=== PATIENT | male | born 1945 | race Caucasian/White ===

== ENCOUNTER 2021-09-13 13:22 | Inpatient (IN) ==
--- NOTE | 2021-09-13 14:52 | Emergency Department Note ---
Extremity Problem HPI General Chief complaint: Extremity Problem,Nontraumatic Stated complaint: Diabetic foot wound Time Seen by Provider: 09/13/21 13:50 Source: patient Mode of arrival: wheelchair Limitations: no limitations History of Present Illness HPI Narrative: Narrative: 75 yo M w/ h/o DM2 p/w foot ulceration. He reports that he has fairly well controlled diabetes, but a few months ago stepped on a rock, resulting in a wound that then became infected. He was placed on two antibiotics for 3 weeks, and had resolution of the infection, but still had some residual ulceration. This was stable until a few days ago when he was working on his feet and then attended a standing auction, ultimately spending about 14 hours on his feet. Since then he has developed redness and some bloody drainage from the foot. He was seen by Dr Matteo perry/ wound care who referred him to the ED. Related Data Home Medications Medication Instructions Recorded Confirmed ascorbic acid (vitamin C) 500 mg 1,000 mg PO DAILY 01/02/16 09/13/21 tablet (Vitamin C) cinnamon bark 500 mg capsule 500 mg PO DAILY 01/02/16 09/13/21 cyanocobalamin (vitamin B-12) 500 500 mcg PO DAILY 01/02/16 09/13/21 mcg tablet insulin glargine 100 unit/mL (3 10 unit SUBCUT DAILY 09/13/21 09/13/21 mL) subcutaneous pen (Lantus Solostar U-100 Insulin) Allergies Allergy/AdvReac Type Severity Reaction Status Date / Time hydrocodone AdvReac Mild Dizziness Verified 09/14/21 06:11 oxycodone [From OxyContin] AdvReac Mild Other Verified 09/14/21 06:11 Review of Systems ROS ROS Narrative: Narrative: All systems ED: reviewed and negative except as stated. PFSH Narrative Patient History Narrative: Narrative: DM2 Medical/Surgical/Family History All Active Problems (Updated 09/13/21 @ 19:42 by Peter Nunez MD) Stage 1 acute kidney injury (Acute) Obesity (BMI 30-39.9) (Acute) Type 2 diabetes mellitus (Acute) Osteomyelitis of foot, right, acute (Acute) Cellulitis of right foot (Acute) Diabetic foot ulcer (Acute) Social History Smoking Status: Never smoker Exam Narrative Narrative: Narrative: General Limitations: no limitations General appearance: Present alert and in no apparent distress Head Head: Present atraumatic and normocephalic ENT ENT: Present normal oropharynx and mucous membranes moist Chest Chest: Present normal inspection and symmetric chest wall rise Respiratory Respiratory: Present normal lung sounds bilaterally; Absent respiratory distress, rales/crackles, wheezes or stridor Cardiovascular Cardiovascular: Present regular rate, normal rhythm, +S1, +S2 and other (2+ B/L radial pulses, 2sec CR over the R great toe); Absent systolic murmur or diastolic murmur Adbominal Abdominal: Present soft and normal bowel sounds; Absent distention or tenderness Extremities Extremities: Present other (2cm ulceration under MTP of R pinky toe, w/ surrounding erythema extending onto the superolateral aspect of the foot, about 10cm total diameter, minimal TTP, slightly warm to touch, blanching. 8x3cm area of blanching not warm not TTP erythema over R eduardo. No streaking. 1+ edema RLE.) Neurological Neurological: Present alert and oriented X3 Psychiatric Psychiatric: Present normal affect Skin Skin: Present warm (WNL) and dry Course Vital Signs Vital signs: Vital Signs Temperature 97.7 F 09/13/21 13:23 Pulse Rate 93 H 09/13/21 13:23 Respiratory Rate 18 09/13/21 13:23 Blood Pressure 147/84 09/13/21 13:23 Pulse Oximetry (%) 95 09/13/21 13:23 Temperature 97.3 F 09/14/21 07:08 Pulse Rate 70 09/14/21 07:08 Respiratory Rate 18 09/14/21 07:08 Blood Pressure 146/86 09/14/21 07:08 Pulse Oximetry (%) 93 09/14/21 07:08 MDM MDM Narrative Medical decision making narrative: Narrative: 75 yo M w/ h/o DM2 p/w foot ulceration and erythema DDx - sepsis, NSTI, cellulitis, osteomyelitis Pt presented clinically stable, in NAD. He was well appearing and did not meet SIRS criteria. NSTI was unlikely w/ no rapid progression (I was able to see a photo from yesterday and there is progression but minimal to moderate), no pain out of proportion to exam. Osteomyelitis was possible based on XR. ESR and CRP were also elevated. In response, I started IV abx while waiting to d/w podiatry. At time of shift change, podiatry call back was still pending and I signed pt out to Dr Mcclellan for final disposition. Lab Data Lab results reviewed: Yes I reviewed the patient's lab results. Result diagrams: 09/14/21 05:20 09/14/21 05:20 Labs: Lab Results 09/13/21 09/13/21 09/13/21 Range/Units 14:09 14:09 14:09 WBC 9.3 (4.5-11.0) K/mcL RBC 4.83 (4.63-6.08) M/mcL Hgb 14.6 (13.7-17.5) g/dL Hct 44.0 (40.1-51.0) % MCV 91.1 (80.0-100.0) fL MCH 30.2 (26.0-34.0) pg MCHC 33.2 (31.0-36.0) g/dL RDW 12.9 (11.5-14.5) % Plt Count 197 (140-440) K/mcL MPV 9.7 (7.4-10.4) fL Neut % (Auto) 89.6 H (38.0-78.0) % Lymph % (Auto) 4.1 L (15.5-49.0) % [place] % (Auto) 5.9 (1.0-12.0) % Eos % (Auto) 0.1 (0.0-7.0) % Baso % (Auto) 0.3 (0.0-2.0) % Lymph # (Auto) 0.38 L (1.50-4.80) K/mcL [place] # (Auto) 0.55 (0.10-0.90) K/mcL Eos # (Auto) 0.01 (0.00-0.70) K/mcL Baso # (Auto) 0.03 (0.00-0.30) K/mcL Absolute Neutrophils 8.33 H (1.80-8.00) K/mcL ESR 58 H (0-15) mm/hr VBG Lactic Acid 0.9 (0.5-2.0) mmol/L Sodium 135 (133-145) mmol/L Potassium 4.2 (3.3-5.1) mmol/L Chloride 96 (96-108) mmol/L Carbon Dioxide 23 (22-30) mmol/L Anion Gap 16.0 (8.0-16.0) BUN 20 (8-23) mg/dL Creatinine 1.3 H (0.7-1.2) mg/dL GFR Calculation 54 Glucose 183 H (70-105) mg/dL Hemoglobin A1c (4.0-6.0) % Hgb Estim Average Glucose mg/dL Calcium 8.9 (8.6-10.4) mg/dL Total Bilirubin 0.5 (0.1-1.0) mg/dL AST 21 (<40) U/L ALT 15 (<40) U/L Alkaline Phosphatase 72 (39-117) U/L C-Reactive Protein (0.03-0.80) mg/dL Total Protein 8.2 (5.9-8.4) gm/dL Albumin 3.9 (3.2-5.2) gm/dL Globulin 4.3 H (2.2-3.7) gm/dL Albumin/Globulin Ratio 0.9 L (1.0-2.3) Procalcitonin (<0.10) ng/mL 09/13/21 09/13/21 09/13/21 Range/Units 14:09 14:09 14:09 WBC (4.5-11.0) K/mcL RBC (4.63-6.08) M/mcL Hgb (13.7-17.5) g/dL Hct (40.1-51.0) % MCV (80.0-100.0) fL MCH (26.0-34.0) pg MCHC (31.0-36.0) g/dL RDW (11.5-14.5) % Plt Count (140-440) K/mcL MPV (7.4-10.4) fL Neut % (Auto) (38.0-78.0) % Lymph % (Auto) (15.5-49.0) % [place] % (Auto) (1.0-12.0) % Eos % (Auto) (0.0-7.0) % Baso % (Auto) (0.0-2.0) % Lymph # (Auto) (1.50-4.80) K/mcL [place] # (Auto) (0.10-0.90) K/mcL Eos # (Auto) (0.00-0.70) K/mcL Baso # (Auto) (0.00-0.30) K/mcL Absolute Neutrophils (1.80-8.00) K/mcL ESR (0-15) mm/hr VBG Lactic Acid (0.5-2.0) mmol/L Sodium (133-145) mmol/L Potassium (3.3-5.1) mmol/L Chloride (96-108) mmol/L Carbon Dioxide (22-30) mmol/L Anion Gap (8.0-16.0) BUN (8-23) mg/dL Creatinine (0.7-1.2) mg/dL GFR Calculation Glucose (70-105) mg/dL Hemoglobin A1c 10.4 H (4.0-6.0) % Hgb Estim Average Glucose 252 mg/dL Calcium (8.6-10.4) mg/dL Total Bilirubin (0.1-1.0) mg/dL AST (<40) U/L ALT (<40) U/L Alkaline Phosphatase (39-117) U/L C-Reactive Protein 28.00 H (0.03-0.80) mg/dL Total Protein (5.9-8.4) gm/dL Albumin (3.2-5.2) gm/dL Globulin (2.2-3.7) gm/dL Albumin/Globulin Ratio (1.0-2.3) Procalcitonin 1.12 H (<0.10) ng/mL Discharge Plan Patient/Caregiver Discharge Instructions Pt seen by COMPACTOR DRIVER/PA only: No Clinical Impression: Cellulitis of right foot, Diabetic foot ulcer Patient Disposition: Xfer As Inpt ([facility]) Discharge Date/Time: 09/13/21 20:28
--- NOTE | 2021-09-13 15:00 | XRay Report ---
INDICATION: foot pain, redness, drainage. Nonhealing ulcer TECHNIQUE: AP, oblique, lateral right foot COMPARISON: None. FINDINGS: There is soft tissue swelling and an apparent wound at the base of the right fifth digit. On lateral view there may be some bone loss of the distal right fifth metatarsal. There may be mild cortical destruction in the medial aspects of the right fifth metatarsal head demonstrated on AP view. Osteomyelitis is not excluded. Follow-up examination or MRI scan recommended. No other acute abnormalities. There is degenerative joint disease. No acute fracture. No other soft tissue abnormality. IMPRESSION: 1. Probable wound with associated soft tissue swelling at the base of the right fifth digit 2. Osteomyelitis of the fifth metatarsal head is possible although not definite Interpreted and Authenticated by: Yoni Herrera 09/13/21
[2021-09-13 15:01] LABS: Basophils # (Auto) 0.03 K/mcL (0.00-0.30); Basophils % (Auto) 0.3 % (0.0-2.0); Eosinophils # (Auto) 0.01 K/mcL (0.00-0.70); Eosinophils % (Auto) 0.1 % (0.0-7.0); Hemoglobin 14.6 g/dL (13.7-17.5); Lymphocytes # (Auto) 0.38 K/mcL (1.50-4.80); Lymphocytes % (Auto) 4.1 % (15.5-49.0); Mean Cell Volume 91.1 fL (80.0-100.0); Mean Corpuscular HGB Conc 33.2 g/dL (31.0-36.0); Mean Platelet Volume 9.7 fL (7.4-10.4); Monocytes # (Auto) 0.55 K/mcL (0.10-0.90); Monocytes % (Auto) 5.9 % (1.0-12.0); Neutrophils % (Auto) 89.6 % (38.0-78.0); Platelet Count 197 K/mcL (140-440); RBC 4.83 M/mcL (4.63-6.08); Red Cell Distribution Width 12.9 % (11.5-14.5); WBC 9.3 K/mcL (4.5-11.0)
[2021-09-13 15:41] LABS: ALT/SGPT 15 U/L (<40); AST/SGOT 21 U/L (<40); Albumin 3.9 gm/dL (3.2-5.2); Albumin/Globulin Ratio 0.9 (1.0-2.3); Alkaline Phosphatase 72 U/L (39-117); Bilirubin,Total 0.5 mg/dL (0.1-1.0); Blood Urea Nitrogen 20 mg/dL (8-23); Calcium 8.9 mg/dL (8.6-10.4); Carbon Dioxide 23 mmol/L (22-30); Chloride 96 mmol/L (96-108); Globulin 4.3 gm/dL (2.2-3.7); Glomerular Filtration Rate 54; Glucose 183 mg/dL (70-105)
[2021-09-13] MEDS ORDERED: PIPERACILLIN SODIUM/TAZOBACTAM 4.5 GM in DEXTROSE 5% IN WATER 50 ML IV ONE (16:22)
[2021-09-13] MEDS ORDERED: VANCOMYCIN 1,500 MG in 0.9 % SODIUM CHLORIDE 500 ML IV ONE (16:22)
--- NOTE | 2021-09-13 19:10 | Emergency Department Note ---
HPI General Chief complaint: Extremity Problem,Nontraumatic Stated complaint: Diabetic foot wound Time Seen by Provider: 09/13/21 13:50 Source: patient Mode of arrival: wheelchair Limitations: no limitations History of Present Illness HPI Narrative: Narrative: Related Data Home Medications Medication Instructions Recorded Confirmed ascorbic acid (vitamin C) [Vitamin 500 mg PO DAILY 01/02/16 01/05/16 C] cinnamon bark 500 mg PO DAILY 01/02/16 01/05/16 citalopram [Celexa] 10 mg PO DAILY 01/02/16 01/05/16 cyanocobalamin (vitamin B-12) 500 mcg PO DAILY 01/02/16 01/05/16 metformin 500 mg PO BIDCC 01/02/16 01/05/16 Previous Rx's Medication Instructions Recorded aspirin 325 mg PO DAILY #30 tab.ec 01/06/16 docusate sodium 100 mg PO BID #60 capsule 01/06/16 hydrocodone-acetaminophen 1 - 2 tab PO Q4HP PRN #90 tablet 01/06/16 Allergies Allergy/AdvReac Type Severity Reaction Status Date / Time oxycodone [From OxyContin] AdvReac Intermediate Other Verified 09/13/21 13:23 Review of Systems ROS ROS Narrative: Narrative: PFSH Narrative Patient History Narrative: Narrative: Medical/Surgical/Family History All Active Problems (Updated 09/13/21 @ 17:47 by Myron Salmeron MD) Cellulitis of right foot (Acute) Diabetic foot ulcer (Acute) Social History Smoking Status: Never smoker Exam Narrative Narrative: Narrative: General Limitations: no limitations Course Vital Signs Vital signs: Vital Signs Temperature 97.7 F 09/13/21 13:23 Pulse Rate 93 H 09/13/21 13:23 Respiratory Rate 18 09/13/21 13:23 Blood Pressure 147/84 09/13/21 13:23 Pulse Oximetry (%) 95 09/13/21 13:23 Temperature 97.7 F 09/13/21 13:23 Pulse Rate 82 09/13/21 19:02 Respiratory Rate 18 09/13/21 13:23 Blood Pressure 128/62 09/13/21 19:02 Pulse Oximetry (%) 96 09/13/21 19:02 [facility] MDM Narrative Medical decision making narrative: Narrative: Patient is a 75-year-old male who was signed out to me by Dr. Salmeron, and I agree with work-up and plan thus far. His medicine the patient had a diabetic foot ulcer over the past 5 weeks, but had a significant change in worsening over the last several days. He was seen at his wound clinic and I sent him here for evaluation and possible admission. He has been on multiple antibiotics over the past 3 weeks, and while initially it improved this is worse than it has been. He otherwise denies no significant symptoms. Vital signs stable, no elevated white blood count though he does have an elevated ESR and CRP. X-ray concerning for possible osteomyelitis. We tried to page podiatry at signout but not yet heard back. In total we have sent 3 calls to the dispatch manager with no return over the past hour and a half, and thus at this point I do feel the patient would best be treated with admission the hospital for IV antibiotics for his diabetic foot ulcer that is draining has the start of some cellulitic changes until he can be further evaluated by podiatry. Patient is agreeable to the plan at this time is no further concerns or questions. I did discuss case with the hospitalist, who agrees the plan of admission at this time. Lab Data Result diagrams: 09/13/21 14:09 09/13/21 14:09 Labs: Lab Results 09/13/21 09/13/21 09/13/21 Range/Units 14:09 14:09 14:09 WBC 9.3 (4.5-11.0) K/mcL RBC 4.83 (4.63-6.08) M/mcL Hgb 14.6 (13.7-17.5) g/dL Hct 44.0 (40.1-51.0) % MCV 91.1 (80.0-100.0) fL MCH 30.2 (26.0-34.0) pg MCHC 33.2 (31.0-36.0) g/dL RDW 12.9 (11.5-14.5) % Plt Count 197 (140-440) K/mcL MPV 9.7 (7.4-10.4) fL Neut % (Auto) 89.6 H (38.0-78.0) % Lymph % (Auto) 4.1 L (15.5-49.0) % [place] % (Auto) 5.9 (1.0-12.0) % Eos % (Auto) 0.1 (0.0-7.0) % Baso % (Auto) 0.3 (0.0-2.0) % Lymph # (Auto) 0.38 L (1.50-4.80) K/mcL [place] # (Auto) 0.55 (0.10-0.90) K/mcL Eos # (Auto) 0.01 (0.00-0.70) K/mcL Baso # (Auto) 0.03 (0.00-0.30) K/mcL Absolute Neutrophils 8.33 H (1.80-8.00) K/mcL ESR 58 H (0-15) mm/hr VBG Lactic Acid 0.9 (0.5-2.0) mmol/L Sodium 135 (133-145) mmol/L Potassium 4.2 (3.3-5.1) mmol/L Chloride 96 (96-108) mmol/L Carbon Dioxide 23 (22-30) mmol/L Anion Gap 16.0 (8.0-16.0) BUN 20 (8-23) mg/dL Creatinine 1.3 H (0.7-1.2) mg/dL GFR Calculation 54 Glucose 183 H (70-105) mg/dL Calcium 8.9 (8.6-10.4) mg/dL Total Bilirubin 0.5 (0.1-1.0) mg/dL AST 21 (<40) U/L ALT 15 (<40) U/L Alkaline Phosphatase 72 (39-117) U/L C-Reactive Protein (0.03-0.80) mg/dL Total Protein 8.2 (5.9-8.4) gm/dL Albumin 3.9 (3.2-5.2) gm/dL Globulin 4.3 H (2.2-3.7) gm/dL Albumin/Globulin Ratio 0.9 L (1.0-2.3) 09/13/21 Range/Units 14:09 WBC (4.5-11.0) K/mcL RBC (4.63-6.08) M/mcL Hgb (13.7-17.5) g/dL Hct (40.1-51.0) % MCV (80.0-100.0) fL MCH (26.0-34.0) pg MCHC (31.0-36.0) g/dL RDW (11.5-14.5) % Plt Count (140-440) K/mcL MPV (7.4-10.4) fL Neut % (Auto) (38.0-78.0) % Lymph % (Auto) (15.5-49.0) % [place] % (Auto) (1.0-12.0) % Eos % (Auto) (0.0-7.0) % Baso % (Auto) (0.0-2.0) % Lymph # (Auto) (1.50-4.80) K/mcL [place] # (Auto) (0.10-0.90) K/mcL Eos # (Auto) (0.00-0.70) K/mcL Baso # (Auto) (0.00-0.30) K/mcL Absolute Neutrophils (1.80-8.00) K/mcL ESR (0-15) mm/hr VBG Lactic Acid (0.5-2.0) mmol/L Sodium (133-145) mmol/L Potassium (3.3-5.1) mmol/L Chloride (96-108) mmol/L Carbon Dioxide (22-30) mmol/L Anion Gap (8.0-16.0) BUN (8-23) mg/dL Creatinine (0.7-1.2) mg/dL GFR Calculation Glucose (70-105) mg/dL Calcium (8.6-10.4) mg/dL Total Bilirubin (0.1-1.0) mg/dL AST (<40) U/L ALT (<40) U/L Alkaline Phosphatase (39-117) U/L C-Reactive Protein 28.00 H (0.03-0.80) mg/dL Total Protein (5.9-8.4) gm/dL Albumin (3.2-5.2) gm/dL Globulin (2.2-3.7) gm/dL Albumin/Globulin Ratio (1.0-2.3) Discharge Plan Patient/Caregiver Discharge Instructions Pt seen by PRACTICAL NURSE/PA only: No Clinical Impression: Cellulitis of right foot, Diabetic foot ulcer Patient Disposition: Xfer As Inpt ([facility]) Follow up with: Benny John MD [Primary Care Provider] - Prescriptions: No Action metformin 500 MG Tablet 500 mg PO BIDCC RF: 0 citalopram [Celexa] 10 MG Tablet 10 mg PO DAILY RF: 0 cyanocobalamin (vitamin B-12) 500 MCG Tablet 500 mcg PO DAILY RF: 0 ascorbic acid (vitamin C) [Vitamin C] 500 MG Tablet 500 mg PO DAILY RF: 0 cinnamon bark 500 MG Capsule 500 mg PO DAILY RF: 0 hydrocodone-acetaminophen 1 TAB Tablet 1 - 2 tab PO Q4HP PRN (Reason: Pain) Qty: 90 RF: 0 aspirin 325 MG Tab.Ec 325 mg PO DAILY Qty: 30 RF: 0 docusate sodium 100 MG Capsule 100 mg PO BID Qty: 60 RF: 0
--- NOTE | 2021-09-13 19:39 | Internal Med History&Physical ---
HPI History of Present Illness Patient information: Note initiated : 09/13/21 at 7:35 pm Service Date, if different from initiated Date: [] Patient: Jayjay Mcdonald a 75 y/o M admitted on for Diabetic Foot Wound. Chief Complaint: [] History of present illness: Mr. Mcdonald is a 75 year old M history of type 2 diabetes, presenting with 3-day history of right foot wound. Patient stepped on a stone 5 weeks ago with his right foot with a resultant foot ulcer. He was treated with 3 weeks course of oral antibiotics. At the end of the therapy, he said that his wound healed up. About 3 days ago, after standing for 14 hours, he noticed the base of his right fifth toe ulcerated again with pustular discharge. He is also experiencing 6 out of 10, aching, continuous pain at the center site. Alleviating factors involving elevating the right leg. Exacerbating factors including standing on the right foot. There is also associated erythematic rash on the right lateral foot as well as under right eduardo. Patient is also complaining of associated fever and chills. He denies any change in appetite or GI upset such as nausea or vomiting. He denies any general body weakness. He went to Dr. Davila office earlier today and was being sent to our ED for further evaluations. Vital signs at ED presentations were all within normal limits. Labs significant for lack of leukocytosis with WBC 9.3. Serum lactic acid 0.9. Serum creatinine level 1.3 with baseline 1.0. Serum glucose level 183. Right foot x-ray showing probable wound with associated soft tissue swelling at the base of the right fifth digit. Osteomyelitis of the fifth metatarsal head is possible although not definite. Constitutional Constitutional: Absent chills, excessive sweating, fatigue, fever(s) and weakness EENT Eyes: Absent blurry vision, change in vision, loss of vision and other visual disturbances Ears: Absent decreased hearing and tinnitus Nose, mouth and throat: Absent abnormal hearing, dry mouth, headache(s), nasal congestion and sore throat Cardiovascular Cardiovascular: Absent chest pain, chest pain at rest, edema, irregular heart rhythm and palpatations Respiratory Respiratory: Absent cough, dyspnea and wheezing Gastrointestinal Gastrointestinal: Absent abdominal pain, constipation, diarrhea, nausea and vomiting Musculoskeletal Musculoskeletal: Absent back pain, deformity, limited range of motion, muscle cramps, muscle weakness and numbness Integumentary Integumentary: Present erythema, lesions, rash, swelling and wounds Neurological Neurological: Absent focal weakness, headache(s) and numbness Psychiatric Psychiatric: Absent anxiety, depression and hallucinations PFSH PFSH All Active Problems (Updated 09/13/21 @ 19:42 by Peter Nunez MD) Stage 1 acute kidney injury (Acute) Obesity (BMI 30-39.9) (Acute) Type 2 diabetes mellitus (Acute) Osteomyelitis of foot, right, acute (Acute) Cellulitis of right foot (Acute) Diabetic foot ulcer (Acute) MEDS/ALLERGIES Home Medications and Allergies Home Medications Medication Instructions Recorded Confirmed Type ascorbic acid (vitamin C) [Vitamin 500 mg PO DAILY 01/02/16 01/05/16 History C] cinnamon bark 500 mg PO DAILY 01/02/16 01/05/16 History citalopram [Celexa] 10 mg PO DAILY 01/02/16 01/05/16 History cyanocobalamin (vitamin B-12) 500 mcg PO DAILY 01/02/16 01/05/16 History metformin 500 mg PO BIDCC 01/02/16 01/05/16 History aspirin 325 mg PO DAILY #30 tab.ec 01/06/16 Rx docusate sodium 100 mg PO BID #60 capsule 01/06/16 Rx hydrocodone-acetaminophen 1 - 2 tab PO Q4HP PRN #90 tablet 01/06/16 Rx Allergies Allergy/AdvReac Type Severity Reaction Status Date / Time oxycodone [From OxyContin] AdvReac Intermediate Other Verified 09/13/21 13:23 EXAM Constitutional Vitals: Temp Pulse Resp BP Pulse Ox 36.5 C 82 18 128/62 96 09/13/21 13:23 09/13/21 19:02 09/13/21 13:23 09/13/21 19:02 09/13/21 19:02 General appearance: cooperative and no acute distress Head Head exam: Present atraumatic and normocephalic Eye Eye exam: Present EOMI and PERRL ENT ENT exam: Present mucous membranes moist, normal exam and normal external ear exam Neck Neck exam: Present normal inspection; Absent lymphadenopathy, tenderness and thyromegaly Respiratory Respiratory exam: Absent accessory muscle use, respiratory distress and wheezes Cardiovascular Cardiovascular exam: Present normal rate and rhythm; Absent JVD GI/Abdominal GI/Abdominal exam: Present normal bowel sounds and soft; Absent organomegaly and tenderness Rectal Rectal exam: Present deferred Extremities Exam Extremities exam: Present full ROM, normal capillary refill and tenderness; Absent normal inspection Neurological Exam Neurological exam: Present alert, CN II-XII intact and oriented X3; Absent motor sensory deficit Psychiatric Psychiatric exam: Present normal affect and normal mood; Absent anxious and depressed Skin Skin exam: Present dry, erythema, rash and warm; Absent intact DATA Data Completed and Pending Labs: Labs from last 24 hours 09/13/21 09/13/21 09/13/21 14:09 14:09 14:09 WBC RBC Hgb Hct MCV MCH MCHC RDW Plt Count MPV Neut % (Auto) Lymph % (Auto) [place] % (Auto) Eos % (Auto) Baso % (Auto) Lymph # (Auto) [place] # (Auto) Eos # (Auto) Baso # (Auto) Absolute Neutrophils ESR 58 H VBG Lactic Acid 0.9 Sodium 135 Potassium 4.2 Chloride 96 Carbon Dioxide 23 Anion Gap 16.0 BUN 20 Creatinine 1.3 H GFR Calculation 54 Glucose 183 H Calcium 8.9 Total Bilirubin 0.5 AST 21 ALT 15 Alkaline Phosphatase 72 C-Reactive Protein 28.00 H Total Protein 8.2 Albumin 3.9 Globulin 4.3 H Albumin/Globulin Ratio 0.9 L 09/13/21 14:09 WBC 9.3 RBC 4.83 Hgb 14.6 Hct 44.0 MCV 91.1 MCH 30.2 MCHC 33.2 RDW 12.9 Plt Count 197 MPV 9.7 Neut % (Auto) 89.6 H Lymph % (Auto) 4.1 L [place] % (Auto) 5.9 Eos % (Auto) 0.1 Baso % (Auto) 0.3 Lymph # (Auto) 0.38 L [place] # (Auto) 0.55 Eos # (Auto) 0.01 Baso # (Auto) 0.03 Absolute Neutrophils 8.33 H ESR VBG Lactic Acid Sodium Potassium Chloride Carbon Dioxide Anion Gap BUN Creatinine GFR Calculation Glucose Calcium Total Bilirubin AST ALT Alkaline Phosphatase C-Reactive Protein Total Protein Albumin Globulin Albumin/Globulin Ratio A/P Assessment and plan (1) Diabetic foot ulcer: Status: Acute (2) Osteomyelitis of foot, right, acute: Status: Acute (3) Type 2 diabetes mellitus: Status: Acute (4) Obesity (BMI 30-39.9): Status: Acute (5) Stage 1 acute kidney injury: Status: Acute (6) Cellulitis of right foot: Status: Acute Narrative A/P Narrative: Assessment and Plans: 1. Right diabetic foot with associated right foot and right lower leg cellulitis, +/- osteomyelitis: Admit to inpatient med surg Consult Dr. Davila, recs. appreciated Consult Dr. Heard dam tender, recs. appreciated CT right foot w/ contrast to look for osteomyelitis Wound culture Blood culture Procalcitonin Serial lactic acid cbc w/ auto diff in the morning to trend WBC Vancomcyin Zosyn NS@100cc/hr Tylenol PRN fever/mild pain Balmorhea PRN moderate pain Morphine IV PRN severe pain Physical therapy Occupational therapy 2. Type 2 diabetes mellitus: HgA1c Hold metformin Low dose correctional scale insulin AC HS Accu Chek AC HS hypoglycemia protocol Diabetic diet 3. Stage 1 acute kidney injury: Avoid nephrotoxic agents NS@100cc/hr CMP in the morning to trend kidney functions 4. 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
[2021-09-13] MEDS ORDERED: DEXTROSE 50% 50 ML VIAL IV PRN (20:56)
[2021-09-13] MEDS ORDERED: ONDANSETRON 4 MG/2 ML VIAL IV PRN (20:56)
[2021-09-13] MEDS ORDERED: VANCOMYCIN PER PHARMACY IV ONE (20:56)
[2021-09-13] MEDS ORDERED: DEXTROSE 31 GM ORAL.SUSP PO PRN (20:56)
[2021-09-13] MEDS ORDERED: IPRATROPIUM/ALBUTEROL 3 ML AMPUL.NEB NEB PRN (20:56)
[2021-09-13] MEDS ORDERED: HYDROcodone/APAP 10/325MG TABLET PO PRN (20:56)
[2021-09-13] MEDS ORDERED: morphine 4 MG/ML VIAL IV PRN (20:56)
[2021-09-13] MEDS ORDERED: DOCUSATE SODIUM 100 MG CAPSULE PO SCH (21:00)
[2021-09-13] MEDS: 0.9 % SODIUM CHLORIDE 1,000 ML IV SCH (21:27)
[2021-09-13] MEDS ORDERED: IOPAMIDOL 100 ML BOTTLE IV ONE (21:31)
[2021-09-13] MEDS: 0.9 % SODIUM CHLORIDE 10 ML SYRINGE IV SCH (21:33)
[2021-09-13] MEDS: HEPARIN 5,000 UNIT/ML VIAL SQ SCH (22:19)
[2021-09-13] MEDS: ZOLPIDEM 5 MG TABLET PO PRN (22:20)
[2021-09-13] MEDS ORDERED: HEPARIN 5,000 UNIT/ML VIAL ONE (22:21)
[2021-09-13] MEDS ORDERED: ZOLPIDEM 5 MG TABLET ONE (22:21)
[2021-09-13 22:25] LABS: Estimated Average Glucose(eAG) 252 mg/dL; Hemoglobin A1C 10.4 % Hgb (4.0-6.0)
[2021-09-13] MEDS: DOCUSATE SODIUM 100 MG CAPSULE PO SCH (22:48)
[2021-09-13] MEDS: SENNOSIDES 1 TABLET PO SCH (22:48)
[2021-09-13] MEDS: PIPERACILLIN SODIUM/TAZOBACTAM 3.375 GM in DEXTROSE 5% IN WATER 50 ML IV SCH (23:37)
[2021-09-13] MEDS: INSULIN LISPRO 1 UNIT/0.01 ML UNIT SQ SCH (23:45)
[2021-09-14] MEDS: PIPERACILLIN SODIUM/TAZOBACTAM 3.375 GM in DEXTROSE 5% IN WATER 50 ML IV SCH ×4 (05:00→23:50)
--- NOTE | 2021-09-14 05:46 | Cat Scan Report ---
INDICATION: look for foot osteomyelitis TECHNIQUE: Thin section axial images through the right foot. Sagittal and coronal reformatted images COMPARISON: Plain film examination dated 09/13/2021 FINDINGS: There is soft tissue edema surrounding the left fifth metatarsal phalangeal joint. This extends the subcutaneous soft tissues. There is a wound involving the plantar surface of the left forefoot at the level of the fifth metatarsal phalangeal joint. Appearance is consistent with soft tissue infection and probable septic joint. No soft tissue gas bubbles to indicate gas gangrene there is bone destruction involving the left fifth metatarsal head. Appearance is consistent with septic arthritis and osteomyelitis. Other metatarsals and phalanges are negative without cortical destruction or evidence for osteomyelitis. There is no acute fracture. There is no radiopaque foreign body. There is degenerative joint disease in the midfoot and hindfoot. There is degenerative change subtalar joints with sclerosis and subchondral cystic change. No evidence for infection. IMPRESSION: 1. Soft tissue swelling consistent with cellulitis at the level of the left fifth metatarsal phalangeal joint extending to the plantar surface. No soft tissue gas bubbles 2. Findings consistent with septic arthritis and osteomyelitis involving the left fifth metatarsal head Interpreted and Authenticated by: Yoni Herrera 09/14/21
[2021-09-14] MEDS: 0.9 % SODIUM CHLORIDE 10 ML SYRINGE IV SCH ×6 (05:55→23:56)
[2021-09-14] MEDS ORDERED: VANCOMYCIN PER PHARMACY IV SCH (06:30)
[2021-09-14 07:11] LABS: Basophils # (Auto) 0.04 K/mcL (0.00-0.30); Basophils % (Auto) 0.5 % (0.0-2.0); Eosinophils % (Auto) 1.3 % (0.0-7.0); Hematocrit 38.4 % (40.1-51.0); Hemoglobin 12.6 g/dL (13.7-17.5); Lymphocytes # (Auto) 1.12 K/mcL (1.50-4.80); Lymphocytes % (Auto) 15.1 % (15.5-49.0); Mean Cell Volume 91.9 fL (80.0-100.0); Mean Corpuscular HGB Conc 32.8 g/dL (31.0-36.0); Mean Platelet Volume 9.9 fL (7.4-10.4); Monocytes # (Auto) 1.06 K/mcL (0.10-0.90); Monocytes % (Auto) 14.3 % (1.0-12.0); Neutrophils % (Auto) 68.8 % (38.0-78.0); Platelet Count 166 K/mcL (140-440); RBC 4.18 M/mcL (4.63-6.08); Red Cell Distribution Width 12.9 % (11.5-14.5); WBC 7.4 K/mcL (4.5-11.0)
[2021-09-14 07:12] LABS: ALT/SGPT 11 U/L (<40); AST/SGOT 16 U/L (<40); Albumin/Globulin Ratio 0.9 (1.0-2.3); Alkaline Phosphatase 58 U/L (39-117); Bilirubin,Total 0.3 mg/dL (0.1-1.0); Blood Urea Nitrogen 14 mg/dL (8-23); Calcium 8.4 mg/dL (8.6-10.4); Carbon Dioxide 22 mmol/L (22-30); Chloride 101 mmol/L (96-108); Globulin 3.5 gm/dL (2.2-3.7); Glomerular Filtration Rate 74; Glucose 166 mg/dL (70-105)
[2021-09-14] MEDS: INSULIN LISPRO 1 UNIT/0.01 ML UNIT SQ SCH ×4 (07:37→21:12)
[2021-09-14] MEDS: 0.9 % SODIUM CHLORIDE 1,000 ML IV SCH (07:50)
[2021-09-14] MEDS: ASPIRIN 325 MG ENTERIC COATED TABLET PO SCH (07:51)
[2021-09-14] MEDS: VANCOMYCIN 1,500 MG in 0.9 % SODIUM CHLORIDE 500 ML IV SCH ×2 (07:51→20:50)
[2021-09-14] MEDS: DOCUSATE SODIUM 100 MG CAPSULE PO SCH ×2 (07:51→21:03)
[2021-09-14] MEDS: CYANOCOBALAMIN (VITAMIN B-12) 500 MCG TABLET PO SCH (07:51)
[2021-09-14] MEDS: ASCORBIC ACID 500 MG TABLET PO SCH (07:51)
[2021-09-14] MEDS: HEPARIN 5,000 UNIT/ML VIAL SQ SCH ×3 (07:52→21:12)
[2021-09-14] MEDS ORDERED: CITALOPRAM 10 MG TABLET PO SCH (09:00)
[2021-09-14] MEDS: Cinnamon Bark 500 MG Capsule PO SCH (09:31)
--- NOTE | 2021-09-14 09:51 | Orthopedic Consult Note ---
HPI Data of Consult Consult date: 09/14/21 Primary Care Provider: Benny John Consult Narrative Patient Information: Note initiated : 09/14/21 at 9:48 am Service Date, if different from initiated Date: [] Patient: Jayjay Mcdonald 75 y/o M admitted on 09/13/21 for Diabetic Foot Wound. Chief Complaint: [diabetic foot wound, right] Right recurring diabetic foot wound. The bone shows destruction on the CT scan. He wants the most definitive solution as he is tired of dealing with this issue. cc:: CC: Peter Nunez MD [facility] All Active Problems (Updated 09/13/21 @ 19:42 by Peter Nunez MD) Stage 1 acute kidney injury (Acute) Obesity (BMI 30-39.9) (Acute) Type 2 diabetes mellitus (Acute) Osteomyelitis of foot, right, acute (Acute) Cellulitis of right foot (Acute) Diabetic foot ulcer (Acute) MEDS/ALLERGIES Home Medications and Allergies Home Medications Medication Instructions Recorded Confirmed Type ascorbic acid (vitamin C) 500 mg 1,000 mg PO DAILY 01/02/16 09/13/21 History tablet (Vitamin C) cinnamon bark 500 mg capsule 500 mg PO DAILY 01/02/16 09/13/21 History cyanocobalamin (vitamin B-12) 500 500 mcg PO DAILY 01/02/16 09/13/21 History mcg tablet insulin glargine 100 unit/mL (3 10 unit SUBCUT DAILY 09/13/21 09/13/21 History mL) subcutaneous pen (Lantus Solostar U-100 Insulin) Allergies Allergy/AdvReac Type Severity Reaction Status Date / Time hydrocodone AdvReac Mild Dizziness Verified 09/14/21 06:11 oxycodone [From OxyContin] AdvReac Mild Other Verified 09/14/21 06:11 Physical Examination Narrative Narrative: Narrative: Ankle & Foot right: Foot appearance: swelling, erythema and contusion A/P Narrative A/P Narrative: Heart: s1, s2, no murmur Lungs: clear to auscultation, bilateral Time Spent With Patient Time: Total time spent is greater than 50% in coordination of care (as documented) at patient's floor/unit and/or counseling patient: Parital Removal of right fifth metatarsal
[2021-09-14] MEDS ORDERED: SCOPOLAMINE 1 PATCH PATCH TOPICAL PRN (10:04)
--- NOTE | 2021-09-14 10:25 | General Surgery Consult Note ---
[facility] Data of Consult Consult date: 09/14/21 Requesting physician: Peter Nunez Primary Care Provider: Benny John Consult Narrative Patient Information: Note initiated : 09/14/21 at 10:11 am Service Date, if different from initiated Date: [] Patient: Jayjay Mcdonald 75 y/o M admitted on 09/13/21 for Right Partial Fifth Metatarsal Amputaion. Chief Complaint: [] Chief complaint: OPEN infected wound RIGHT plantar DFU with cellulitis. Reason for consult: Wound management and continuity of care. cc:: CC: Peter Nunez MD Constitutional Constitutional: Present as per HPI Additional comments: H/O DFU under RIGHT 5th toe 5 weeks ago, Healed wound after conservative slava gement. This opened again over 3 days ago with drainage, rash along the RIGHT lateral foot, extending proximally up to ankle and lower leg. NO other acute systemic or constitutional symptoms. Integumentary Integumentary: Present as per HPI Additional comments: Open wound under RIGHT 5th toe MPJ with edema, rash and cellulitis. Neurological Additional comments: DM with peripheral neuropathy PFSH PFSH All Active Problems (Updated 09/14/21 @ 10:23 by Krystian Davila MD) Stage 1 acute kidney injury (Acute) Obesity (BMI 30-39.9) (Acute) Type 2 diabetes mellitus (Acute) Osteomyelitis of foot, right, acute (Acute) Cellulitis of right foot (Acute) Diabetic foot ulcer (Acute) MEDS/ALLERGIES Home Medications and Allergies Home Medications Medication Instructions Recorded Confirmed Type ascorbic acid (vitamin C) 500 mg 1,000 mg PO DAILY 01/02/16 09/13/21 History tablet (Vitamin C) cinnamon bark 500 mg capsule 500 mg PO DAILY 01/02/16 09/13/21 History cyanocobalamin (vitamin B-12) 500 500 mcg PO DAILY 01/02/16 09/13/21 History mcg tablet insulin glargine 100 unit/mL (3 10 unit SUBCUT DAILY 09/13/21 09/13/21 History mL) subcutaneous pen (Lantus Solostar U-100 Insulin) Allergies Allergy/AdvReac Type Severity Reaction Status Date / Time hydrocodone AdvReac Mild Dizziness Verified 09/14/21 06:11 oxycodone [From OxyContin] AdvReac Mild Other Verified 09/14/21 06:11 Physical Examination Vital Signs Vital signs: Temp Pulse Resp BP Pulse Ox 97.3 F 70 18 146/86 93 09/14/21 07:08 09/14/21 07:08 09/14/21 07:08 09/14/21 07:08 09/14/21 07:08 Eyes Eye exam: PERRL and normal ocular movement ENT ENT exam: normal pinna, normal mucosa and no congestion Head Head exam IM: Present atraumatic and normocephalic Neck Neck exam: no masses, trachea midline and no venous distension Cardiovascular Cardiovascular exam IM: Present normal rate and rhythm Respiratory Respiratory exam: normal respiratory effort and clear to auscultation Abdomen Abdomen: Present soft, non tender and bowel sounds Integumentary Integumentary: Present other (DFU Stage 4 under RIGHT 5th toe MPJ. Probes to bone. Proximal edema, warmth, odor and draiange with rash / cellulitis extenidng to ankle and lower leg. ) Neurologic Neurologic: Present other (Diabetes with peripheral neuropathy.) Musculoskeletal Musculoskeletal: Present normal posture Psychiatric Psychiatric: Present oriented to time, oriented to person, oriented to place, speech is normal and memory intact Additional Findings Additional exam: Lags and Imaging studies reviewed. X Ray and CT: Destruction of MPJ 5th toe under open wound site. Uncontrolled DM A1C is over 9, Elevated CRP, ESR and Calcitonin. Results Labs Result diagrams: 09/14/21 05:20 09/14/21 05:20 Labs: Abnormal lab results 09/13/21 09/13/21 09/13/21 Range/Units 14:09 14:09 14:09 RBC (4.63-6.08) M/mcL Hgb (13.7-17.5) g/dL Hct (40.1-51.0) % Neut % (Auto) 89.6 H (38.0-78.0) % Lymph % (Auto) 4.1 L (15.5-49.0) % Dare % (Auto) (1.0-12.0) % Lymph # (Auto) 0.38 L (1.50-4.80) K/mcL [place] # (Auto) (0.10-0.90) K/mcL Absolute Neutrophils 8.33 H (1.80-8.00) K/mcL ESR 58 H (0-15) mm/hr Creatinine 1.3 H (0.7-1.2) mg/dL Glucose 183 H (70-105) mg/dL Hemoglobin A1c (4.0-6.0) % Hgb Calcium (8.6-10.4) mg/dL C-Reactive Protein (0.03-0.80) mg/dL Albumin (3.2-5.2) gm/dL Globulin 4.3 H (2.2-3.7) gm/dL Albumin/Globulin Ratio 0.9 L (1.0-2.3) Procalcitonin (<0.10) ng/mL 09/13/21 09/13/21 09/13/21 Range/Units 14:09 14:09 14:09 RBC (4.63-6.08) M/mcL Hgb (13.7-17.5) g/dL Hct (40.1-51.0) % Neut % (Auto) (38.0-78.0) % Lymph % (Auto) (15.5-49.0) % [place]are % (Auto) (1.0-12.0) % Lymph # (Auto) (1.50-4.80) K/mcL [place] # (Auto) (0.10-0.90) K/mcL Absolute Neutrophils (1.80-8.00) K/mcL ESR (0-15) mm/hr Creatinine (0.7-1.2) mg/dL Glucose (70-105) mg/dL Hemoglobin A1c 10.4 H (4.0-6.0) % Hgb Calcium (8.6-10.4) mg/dL C-Reactive Protein 28.00 H (0.03-0.80) mg/dL Albumin (3.2-5.2) gm/dL Globulin (2.2-3.7) gm/dL Albumin/Globulin Ratio (1.0-2.3) Procalcitonin 1.12 H (<0.10) ng/mL 09/14/21 09/14/21 Range/Units 05:20 05:20 RBC 4.18 L (4.63-6.08) M/mcL Hgb 12.6 L (13.7-17.5) g/dL Hct 38.4 L (40.1-51.0) % Neut % (Auto) (38.0-78.0) % Lymph % (Auto) 15.1 L (15.5-49.0) % Dare % (Auto) 14.3 H (1.0-12.0) % Lymph # (Auto) 1.12 L (1.50-4.80) K/mcL [place]are # (Auto) 1.06 H (0.10-0.90) K/mcL Absolute Neutrophils (1.80-8.00) K/mcL ESR (0-15) mm/hr Creatinine (0.7-1.2) mg/dL Glucose 166 H (70-105) mg/dL Hemoglobin A1c (4.0-6.0) % Hgb Calcium 8.4 L (8.6-10.4) mg/dL C-Reactive Protein (0.03-0.80) mg/dL Albumin 3.0 L (3.2-5.2) gm/dL Globulin (2.2-3.7) gm/dL Albumin/Globulin Ratio 0.9 L (1.0-2.3) Procalcitonin (<0.10) ng/mL Diabetes panel 09/13/21 09/13/21 09/14/21 Range/Units 14:09 14:09 05:20 Sodium 135 133 (133-145) mmol/L Potassium 4.2 3.9 (3.3-5.1) mmol/L Chloride 96 101 (96-108) mmol/L Carbon Dioxide 23 22 (22-30) mmol/L BUN 20 14 (8-23) mg/dL Creatinine 1.3 H 1.0 (0.7-1.2) mg/dL Glucose 183 H 166 H (70-105) mg/dL Hemoglobin A1c 10.4 H (4.0-6.0) % Hgb Calcium 8.9 8.4 L (8.6-10.4) mg/dL AST 21 16 (<40) U/L ALT 15 11 (<40) U/L Alkaline Phosphatase 72 58 (39-117) U/L Total Protein 8.2 6.5 (5.9-8.4) gm/dL Albumin 3.9 3.0 L (3.2-5.2) gm/dL Calcium panel 09/13/21 09/14/21 Range/Units 14:09 05:20 Calcium 8.9 8.4 L (8.6-10.4) mg/dL Albumin 3.9 3.0 L (3.2-5.2) gm/dL Pituitary panel 09/13/21 09/14/21 Range/Units 14:09 05:20 Sodium 135 133 (133-145) mmol/L Potassium 4.2 3.9 (3.3-5.1) mmol/L Chloride 96 101 (96-108) mmol/L Carbon Dioxide 23 22 (22-30) mmol/L BUN 20 14 (8-23) mg/dL Creatinine 1.3 H 1.0 (0.7-1.2) mg/dL Glucose 183 H 166 H (70-105) mg/dL Calcium 8.9 8.4 L (8.6-10.4) mg/dL Adrenal panel 09/13/21 09/14/21 Range/Units 14:09 05:20 Sodium 135 133 (133-145) mmol/L Potassium 4.2 3.9 (3.3-5.1) mmol/L Chloride 96 101 (96-108) mmol/L Carbon Dioxide 23 22 (22-30) mmol/L BUN 20 14 (8-23) mg/dL Creatinine 1.3 H 1.0 (0.7-1.2) mg/dL Glucose 183 H 166 H (70-105) mg/dL Calcium 8.9 8.4 L (8.6-10.4) mg/dL Total Bilirubin 0.5 0.3 (0.1-1.0) mg/dL AST 21 16 (<40) U/L ALT 15 11 (<40) U/L Alkaline Phosphatase 72 58 (39-117) U/L Total Protein 8.2 6.5 (5.9-8.4) gm/dL Albumin 3.9 3.0 L (3.2-5.2) gm/dL All other labs normal. Imaging Chest x-ray: report reviewed Additional studies: CT and X Ray RIGHT foot reviewed A/P Assessment and plan (1) Obesity (BMI 30-39.9): Status: Acute (2) Osteomyelitis of foot, right, acute: Status: Acute (3) Cellulitis of right foot: Status: Acute (4) Diabetic foot ulcer: Status: Acute Comment: Uncontrolled DM with CSSSI Right foot. Stage 4 ulcer, Needs surgical debridement and tissue c/s for futher treatment. Narrative A/P Narrative: Assessment: Uncontrolled diabetes Sepsis CSSSI Acute osteomyelitis RIGHT 5th toe. Plan: IV antibiotics. Podiatry and foot surgery consult Dr Live Heard for OR today. I will continue to follow patient from wound care point of view. Time Spent With Patient Time: Total time spent is greater than 50% in coordination of care (as documented) at patient's floor/unit and/or counseling patient: Total time spent with greater than 50% in coordination of care (as documented) at patient's floor/unit and/or counseling patient:: Greater than 35 minutes
[2021-09-14] MEDS: CITALOPRAM 20 MG TABLET PO SCH (10:43)
--- NOTE | 2021-09-14 11:00 | Internal Med Progress Note ---
SUBJECTIVE Subjective Patient information: Note initiated : 09/14/21 at 10:54 am Service Date, if different from initiated Date: [] Patient: Jayjay Mcdonald 75 y/o M admitted on 09/13/21 for Right Partial Fifth Metatarsal Amputaion. Chief Complaint: [] Interval history: History of present illness: Mr. Mcdonald is a 75 year old M history of type 2 diabetes, presenting with 3-day history of right foot wound. Patient stepped on a stone 5 weeks ago with his right foot with a resultant foot ulcer. He was treated with 3 weeks course of oral antibiotics. At the end of the therapy, he said that his wound healed up. About 3 days ago, after standing for 14 hours, he noticed the base of his right fifth toe ulcerated again with pustular discharge. He is also experiencing 6 out of 10, aching, continuous pain at the center site. Alleviating factors involving elevating the right leg. Exacerbating factors including standing on the right foot. There is also associated erythematic rash on the right lateral foot as well as under right eduardo. Patient is also complaining of associated fever and chills. He denies any change in appetite or GI upset such as nausea or vomiting. He denies any general body weakness. He went to Dr. Davila office earlier today and was being sent to our ED for further evaluations. Vital signs at ED presentations were all within normal limits. Labs significant for lack of leukocytosis with WBC 9.3. Serum lactic acid 0.9. Serum creatinine level 1.3 with baseline 1.0. Serum glucose level 183. Right foot x-ray showing probable wound with associated soft tissue swelling at the base of the right fifth digit. Osteomyelitis of the fifth metatarsal head is possible although not definite. 09/14: Afebrile overnight. Blood and wound cultures no growth to date. CT right foot signs of osteomyelitis. Dr. Heard to be performing surgery this morning. Constitutional Vitals: Vital Signs Temp Pulse Resp BP Pulse Ox 36.3 C 70 18 146/86 93 09/14/21 07:08 09/14/21 07:08 09/14/21 07:08 09/14/21 07:08 09/14/21 07:08 Period Temp Pulse Resp BP Sys/Elizondo Pulse Ox Last 24 Hr 36.3 C-37.2 C 70-93 18-20 120-157/62-110 93-98 Intake and Output 09/13/21 09/14/21 09/14/21 21:59 05:59 13:59 Intake Total 205 202 7115 Output Total 600 Balance 550 -100 1000 Weight 128.367 kg Intake & Output: Intake & Output 09/13/21 09/14/21 09/14/21 21:59 05:59 13:59 Intake Total 474 886 0030 Output Total 600 Balance 550 -100 1000 Weight 128.367 kg Intake: IV 028 236 0562 Sodium Chloride 0.9% 1,000 ml @ 1000 100 mls/hr IV .Q10H [facility] Rx#: [id number] Zosyn 3.375 gm In Dextrose 5% 100 in Water 50 ml @ 100 mls/hr IV Q6H [facility] Rx#:[id number] Zosyn 4.5 gm In Dextrose 5% in 50 Water 50 ml @ 100 mls/hr IV ONCE ONE Rx#:[id number] Vancomycin 1,500 mg In Sodium 500 Chloride 0.9% 500 ml @ 333.3 mls/hr IV ONCE ONE Rx#: [id number] Oral 400 Output: Void Amount 600 Other: Meal Breakfast Percent of Meal Consumed 25% Feeding Ability Independent Urine Appearance Clear Urine Color Pale # Bowel Movements 0 Head Head exam: Present atraumatic and normal inspection Eye Eye exam: Present normal appearance ENT ENT exam: Present mucous membranes moist, normal exam and normal external ear exam Neck Neck exam: Present normal inspection Respiratory Respiratory exam: Present normal respiratory exam Cardiovascular Cardiovascular exam: Present normal rate and rhythm GI/Abdominal GI/Abdominal exam: Present normal bowel sounds Extremities Exam Extremities exam: Present full ROM and tenderness; Absent normal inspection Additional comments: Right 5th metatarsal toe base ulcer measuring 1cm across with pustular discharge and surround erythema, warmth, tenderness to palpation Back Exam Back exam: Present normal inspection Neurological Exam Neurological exam: Present alert and oriented X3 Skin Skin exam: Present erythema and warm; Absent intact Additional comments: Right 5th metatarsal toe base ulcer measuring 1cm across with pustular discharge and surround erythema, warmth, tenderness to palpation OBJ DATA Labs CBC & Chem 7: 09/14/21 05:20 09/14/21 05:20 Labs: Abnormal Lab Results 09/14/21 09/14/21 09/13/21 05:20 05:20 14:09 RBC 4.18 L Hgb 12.6 L Hct 38.4 L Neut % (Auto) Lymph % (Auto) 15.1 L [place] % (Auto) 14.3 H Lymph # (Auto) 1.12 L [place] # (Auto) 1.06 H Absolute Neutrophils ESR Creatinine Glucose 166 H Hemoglobin A1c Calcium 8.4 L C-Reactive Protein Albumin 3.0 L Globulin Albumin/Globulin Ratio 0.9 L Procalcitonin 1.12 H 09/13/21 09/13/21 09/13/21 14:09 14:09 14:09 RBC Hgb Hct Neut % (Auto) Lymph % (Auto) [place] % (Auto) Lymph # (Auto) [place] # (Auto) Absolute Neutrophils ESR 58 H Creatinine Glucose Hemoglobin A1c 10.4 H Calcium C-Reactive Protein 28.00 H Albumin Globulin Albumin/Globulin Ratio Procalcitonin 09/13/21 09/13/21 14:09 14:09 RBC Hgb Hct Neut % (Auto) 89.6 H Lymph % (Auto) 4.1 L [place] % (Auto) Lymph # (Auto) 0.38 L [place] # (Auto) Absolute Neutrophils 8.33 H ESR Creatinine 1.3 H Glucose 183 H Hemoglobin A1c Calcium C-Reactive Protein Albumin Globulin 4.3 H Albumin/Globulin Ratio 0.9 L Procalcitonin Meds: Medications Acetaminophen (Acetaminophen 325 Mg Tablet) 650 mg PO Q6HP PRN; Protocol PRN Reason: Per Pain Protocol/Fever > 101 Hydrocodone Bitart/Acetaminophen (Hydrocodone/Apap 10/325mg Tablet) 1 - 2 tab PO Q4HP PRN; Protocol PRN Reason: Pain Albuterol/Ipratropium (Ipratropium/Albuterol 3 Ml Ampul.Neb) 3 ml NEB Q4HRT PRN PRN Reason: Wheezing Ascorbic Acid (Ascorbic Acid 500 Mg Tablet) 500 mg PO DAILY [facility] Last Admin: 09/14/21 07:51 Dose: 500 mg Documented by: Aspirin (Aspirin 325 Mg Enteric Coated Tablet) 325 mg PO DAILY [facility] Last Admin: 09/14/21 07:51 Dose: 325 mg Documented by: Citalopram Hydrobromide (Citalopram 20 Mg Tablet) 10 mg PO DAILY [facility] Last Admin: 09/14/21 10:43 Dose: 10 mg Documented by: Cyanocobalamin (Cyanocobalamin (Vitamin B-12) 500 Mcg Tablet) 500 mcg PO DAILY [facility] Last Admin: 09/14/21 07:51 Dose: 500 mcg Documented by: Dextrose (Dextrose 50% 50 Ml Vial) 0 ml IV UD PRN PRN Reason: Hypoglycemia Diagnostic Test (Pha) (Accu-Chek 1 Each Strip) 1 each FS [facility] Last Admin: 09/14/21 07:37 Dose: 1 each Documented by: Docusate Sodium (Docusate Sodium 100 Mg Capsule) 100 mg PO BID [facility] Last Admin: 09/14/21 07:51 Dose: 100 mg Documented by: Glucose (Dextrose 31 Gm Oral.Susp) 15 gm PO PRN PRN PRN Reason: Hypoglycemia Heparin Sodium (Porcine) (Heparin 5,000 Unit/Ml Vial) 5,000 unit SQ Q12 [facility] Last Admin: 09/14/21 09:31 Dose: Not Given Documented by: Sodium Chloride (Sodium Chloride 0.9%) 1,000 mls @ 100 mls/hr IV .Q10H [facility] Last Admin: 09/14/21 07:50 Dose: 100 mls/hr Documented by: Piperacillin Sod/Tazobactam (Sod 3.375 gm/ Dextrose) 50 mls @ 100 mls/hr IV Q6H [facility]; Protocol Last Infusion: 09/14/21 05:30 Dose: Infused Documented by: Vancomycin HCl 1,500 mg/ (Sodium Chloride) 500 mls @ 333.3 mls/hr IV Q12H [facility] Last Admin: 09/14/21 07:51 Dose: 333.3 mls/hr Documented by: Insulin Human Lispro (Insulin Lispro 1 Unit/0.01 Ml Unit) 0 unit SQ [facility]; Protocol Last Admin: 09/14/21 07:37 Dose: 2 units Documented by: Morphine Sulfate (Morphine 4 Mg/Ml Vial) 4 mg IV Q4HP PRN; Protocol PRN Reason: Per Pain Protocol Ondansetron HCl (Ondansetron 4 Mg/2 Ml Vial) 4 mg IV Q6HP PRN PRN Reason: Nausea And Vomiting Cinnamon Bark 500 Mg (Capsule) 1 dose PO DAILY [facility] Last Admin: 09/14/21 09:31 Dose: Not Given Documented by: Scopolamine (Scopolamine 1 Patch Patch) 1 patch TOPICAL PREOP PRN PRN Reason: Nausea And Vomiting Stop: 09/14/21 17:00 Senna (Sennosides 1 Tablet) 2 tab PO HS [facility] Last Admin: 09/13/21 22:48 Dose: Not Given Documented by: Sodium Chloride (0.9 % Sodium Chloride 10 Ml Syringe) 10 ml IV Q8 [facility] Last Admin: 09/14/21 05:55 Dose: Not Given Documented by: Vancomycin HCl (Vancomycin Per Pharmacy) 1 order IV UD [facility]; Protocol Zolpidem Tartrate (Zolpidem 5 Mg Tablet) 5 mg PO HSP PRN PRN Reason: Insomnia Last Admin: 09/13/21 22:20 Dose: 5 mg Documented by: A/P Assessment and plan (1) Diabetic foot ulcer: Status: Acute Comment: Uncontrolled DM with CSSSI Right foot. Stage 4 ulcer, Needs surgical debridement and tissue c/s for futher treatment. (2) Osteomyelitis of foot, right, acute: Status: Acute (3) Type 2 diabetes mellitus: Status: Acute (4) Obesity (BMI 30-39.9): Status: Acute (5) Stage 1 acute kidney injury: Status: Acute (6) Cellulitis of right foot: Status: Acute Narrative A/P Narrative: Assessment and Plans: 1. Right diabetic foot with associated right foot and right lower leg cellulitis, +/- osteomyelitis: Stays in inpatient med surg Consult Dr. Davila, recs. appreciated Consult Dr. Heard community health nurse staff, recs. appreciated. Surgery this morning CT right foot w/ contrast to look for osteomyelitis--> signs of osteomyelitis Wound culture, no growth to date Blood culture, no growth to date Procalcitonin Serial lactic acid cbc w/ auto diff in the morning to trend WBC Vancomcyin Zosyn Can saline lock after surgery Tylenol PRN fever/mild pain [place] PRN moderate pain Morphine IV PRN severe pain Physical therapy Occupational therapy 2. Type 2 diabetes mellitus: HgA1c Hold metformin Low dose correctional scale insulin AC HS Accu Chek AC HS hypoglycemia protocol Diabetic diet 3. Stage 1 acute kidney injury: Avoid nephrotoxic agents Can saline lock after surgery CMP in the morning to trend kidney functions 4. 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
[2021-09-14] MEDS ORDERED: ONDANSETRON 4 MG/2 ML VIAL ONE (11:22)
[2021-09-14] MEDS ORDERED: MIDAZOLAM 2 MG/2 ML VIAL ONE (11:22)
[2021-09-14] MEDS ORDERED: KETAMINE 50 MG/ML Syringe (ANEST) IV ONE (11:22)
[2021-09-14] MEDS ORDERED: PROPOFOL 200 MG/20 ML VIAL IV ONE (11:22)
[2021-09-14] MEDS ORDERED: ACETAMINOPHEN 1,000 MG/100 ML BAG IV ONE (11:50)
[2021-09-14] MEDS ORDERED: HYDROmorphone 0.5 MG/0.5 ML SYRINGE IV PRN (11:50)
[2021-09-14] MEDS ORDERED: IPRATROPIUM/ALBUTEROL 3 ML AMPUL.NEB NEB PRN (11:50)
[2021-09-14] MEDS ORDERED: fentaNYL 100 MCG/2 ML VIAL IV PRN (11:50)
[2021-09-14] MEDS ORDERED: ONDANSETRON 4 MG/2 ML VIAL IV PRN (11:50)
[2021-09-14] MEDS ORDERED: PROMETHAZINE 25 MG/ML VIAL IV PRN (11:50)
[2021-09-14] MEDS ORDERED: LACTATED RINGERS 250 ML IV PRN (11:50)
[2021-09-14] MEDS ORDERED: LACTATED RINGERS 1,000 ML IV SCH (12:00)
--- NOTE | 2021-09-14 12:02 | Brief Operative Note ---
Brief Operative Note Date of procedure: 09/14/21 Pre-op diagnosis: OSTEOMYELITIS RIGHT FIFTH METATARSAL Post-op diagnosis: same Procedure: Parital amputation right fifth metatarsal Grafts/Implants: No Anesthesia: MAC Surgeon: Live Heard Estimated blood loss (cc): 50 Tourniquet Time (Minutes): 15 Specimens Removed/Pathology: other (bone biopsy for culture right fifth metatarsal) Condition: stable Disposition: floor
[2021-09-14] MEDS ORDERED: VANCOMYCIN 1 GM VIAL IP SCH (12:45)
--- NOTE | 2021-09-14 12:47 | Operative Note ---
DATE OF OPERATION: 09/14/2021 PREOPERATIVE DIAGNOSIS: Osteomyelitis, right 5th metatarsal. POSTOPERATIVE DIAGNOSIS: Osteomyelitis, right 5th metatarsal. PROCEDURE: Partial amputation of the right 5th metatarsal. IMPLANTS: None. ANESTHESIA: MAC. BLOOD LOSS: 50 mL. TOURNIQUET TIME: 50 minutes. SPECIMEN: Bone biopsy for culture of the right 5th metatarsal. CONDITION: Stable. DISPOSITION: PACU. PROCEDURE IN DETAIL: The patient was brought to the operating room and placed on the operating table in supine position. Right lower extremity was scrubbed, prepped and draped in the usual aseptic fashion. Esmarch applied. Pneumatic thigh tourniquet inflated to 250 mmHg. Attention was directed to the right 5th metatarsal where a full-thickness incision was created to 6 cm in length. This was down to bone. There was noted to be purulent drainage. There was also full thickness bone ulceration on the plantar aspect, allowed for drainage in this region. The bone was cut with an osteotomy at its proximal middle shaft in a proximal plantar to dorsal distal orientation. Once the remaining distal metatarsal was disarticulated from the surrounding soft tissue was passed for culture of the bone, the area was irrigated with IrriSept and closure was performed to the skin only with 4-0 nylon in a horizontal interrupted suture fashion. The plantar ulcer allowed for drainage plantarly. Xeroform, 4 x 4 gauze, Kerlix, and Evgeny wrap applied. The patient tolerated the procedure and anesthesia well and was transferred to the postoperative care unit with vital signs stable and vascular status intact to his foot. He will be transferred to the floor for continued antibiotic therapy and treatment. KDMichelle:courtney Job ID: [id number] Doc ID: [id number] Live Heard DPM
[2021-09-14] MEDS: ACETAMINOPHEN 325 MG TABLET PO PRN ×2 (16:33→23:45)
[2021-09-14] MEDS: SENNOSIDES 1 TABLET PO SCH (21:03)
[2021-09-15] MEDS: PIPERACILLIN SODIUM/TAZOBACTAM 3.375 GM in DEXTROSE 5% IN WATER 50 ML IV SCH ×4 (05:50→23:27)
[2021-09-15] MEDS: 0.9 % SODIUM CHLORIDE 10 ML SYRINGE IV SCH ×5 (05:51→20:56)
[2021-09-15 07:23] LABS: Basophils # (Auto) 0.03 K/mcL (0.00-0.30); Basophils % (Auto) 0.4 % (0.0-2.0); Eosinophils # (Auto) 0.16 K/mcL (0.00-0.70); Eosinophils % (Auto) 2.2 % (0.0-7.0); Hematocrit 36.9 % (40.1-51.0); Hemoglobin 12.3 g/dL (13.7-17.5); Lymphocytes # (Auto) 1.35 K/mcL (1.50-4.80); Lymphocytes % (Auto) 18.4 % (15.5-49.0); Mean Cell Volume 92.9 fL (80.0-100.0); Mean Corpuscular HGB Conc 33.3 g/dL (31.0-36.0); Mean Platelet Volume 9.7 fL (7.4-10.4); Monocytes # (Auto) 0.99 K/mcL (0.10-0.90); Monocytes % (Auto) 13.5 % (1.0-12.0); Neutrophils % (Auto) 65.5 % (38.0-78.0); Platelet Count 184 K/mcL (140-440); RBC 3.97 M/mcL (4.63-6.08); Red Cell Distribution Width 12.9 % (11.5-14.5); WBC 7.3 K/mcL (4.5-11.0)
[2021-09-15 07:31] LABS: ALT/SGPT 13 U/L (<40); AST/SGOT 16 U/L (<40); Albumin 2.9 gm/dL (3.2-5.2); Albumin/Globulin Ratio 0.8 (1.0-2.3); Alkaline Phosphatase 58 U/L (39-117); Bilirubin,Total 0.3 mg/dL (0.1-1.0); Blood Urea Nitrogen 10 mg/dL (8-23); Calcium 8.4 mg/dL (8.6-10.4); Carbon Dioxide 23 mmol/L (22-30); Chloride 102 mmol/L (96-108); Globulin 3.6 gm/dL (2.2-3.7); Glomerular Filtration Rate 74; Glucose 146 mg/dL (70-105)
[2021-09-15] MEDS: INSULIN LISPRO 1 UNIT/0.01 ML UNIT SQ SCH ×4 (08:51→21:05)
[2021-09-15] MEDS: ASCORBIC ACID 500 MG TABLET PO SCH (08:52)
[2021-09-15] MEDS: ASPIRIN 325 MG ENTERIC COATED TABLET PO SCH (08:52)
[2021-09-15] MEDS: CYANOCOBALAMIN (VITAMIN B-12) 500 MCG TABLET PO SCH (08:52)
[2021-09-15] MEDS: CITALOPRAM 20 MG TABLET PO SCH (08:52)
[2021-09-15] MEDS: HEPARIN 5,000 UNIT/ML VIAL SQ SCH (08:53)
[2021-09-15] MEDS: Cinnamon Bark 500 MG Capsule PO SCH (08:53)
[2021-09-15] MEDS: DOCUSATE SODIUM 100 MG CAPSULE PO SCH ×2 (08:56→21:01)
[2021-09-15] MEDS: VANCOMYCIN 1,500 MG in 0.9 % SODIUM CHLORIDE 500 ML IV SCH ×2 (10:04→20:55)
--- NOTE | 2021-09-15 10:28 | Internal Med Progress Note ---
SUBJECTIVE Subjective Patient information: Note initiated : 09/15/21 at 10:26 am Service Date, if different from initiated Date: [] Patient: Jayjay Mcdonald 75 y/o M admitted on 09/13/21 for Right Partial Fifth Metatarsal Amputaion. Chief Complaint: [] Interval history: History of present illness: Mr. Mcdonald is a 75 year old M history of type 2 diabetes, presenting with 3-day history of right foot wound. Patient stepped on a stone 5 weeks ago with his right foot with a resultant foot ulcer. He was treated with 3 weeks course of oral antibiotics. At the end of the therapy, he said that his wound healed up. About 3 days ago, after standing for 14 hours, he noticed the base of his right fifth toe ulcerated again with pustular discharge. He is also experiencing 6 out of 10, aching, continuous pain at the center site. Alleviating factors involving elevating the right leg. Exacerbating factors including standing on the right foot. There is also associated erythematic rash on the right lateral foot as well as under right eduardo. Patient is also complaining of associated fever and chills. He denies any change in appetite or GI upset such as nausea or vomiting. He denies any general body weakness. He went to Dr. Davila office earlier today and was being sent to our ED for further evaluations. Vital signs at ED presentations were all within normal limits. Labs significant for lack of leukocytosis with WBC 9.3. Serum lactic acid 0.9. Serum creatinine level 1.3 with baseline 1.0. Serum glucose level 183. Right foot x-ray showing probable wound with associated soft tissue swelling at the base of the right fifth digit. Osteomyelitis of the fifth metatarsal head is possible although not definite. 09/14: Afebrile overnight. Blood and wound cultures no growth to date. CT right foot signs of osteomyelitis. Dr. Heard to be performing surgery this morning. 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 Heard on 09/14. Fasting glucose 146 this morning. Blood and wound cultures no growth to date. Denies fever or chills or sweating. Denies pain of his right foot. Good energy. Good appetite. Constitutional Vitals: Vital Signs Temp Pulse Resp BP Pulse Ox 36.4 C 73 20 143/87 93 09/15/21 08:00 09/15/21 03:40 09/15/21 08:00 09/15/21 08:00 09/15/21 08:00 Period Temp Pulse Resp BP Sys/Elizondo Pulse Ox Last 24 Hr 36.3 C-37.0 C 65-74 16-23 111-149/75-93 91-98 Intake and Output 09/14/21 09/15/21 09/15/21 21:59 05:59 13:59 Intake Total 650 950 Output Total 850 950 450 Balance -200 0 -450 Weight 132.721 kg Intake & Output: Intake & Output 09/14/21 09/15/21 09/15/21 21:59 05:59 13:59 Intake Total 650 950 Output Total 850 950 450 Balance -200 0 -450 Weight 132.721 kg Intake: IV 50 550 Zosyn 3.375 gm In Dextrose 5% 50 50 in Water 50 ml @ 100 mls/hr IV Q6H [facility] Rx#:[id number] Vancomycin 1,500 mg In Sodium 500 Chloride 0.9% 500 ml @ 333.3 mls/hr IV Q12H [facility] Rx#: [id number] Oral 600 400 Output: Void Amount 850 950 450 Other: Meal Lunch Percent of Meal Consumed 100% Feeding Ability Independent Urine Appearance Clear Clear Clear Urine Color Bright Yellow Bright Yellow Bright Yellow Urine Odor Normal Head Head exam: Present atraumatic and normal inspection Eye Eye exam: Present normal appearance ENT ENT exam: Present mucous membranes moist, normal exam and normal external ear exam Neck Neck exam: Present normal inspection Respiratory Respiratory exam: Present normal respiratory exam Cardiovascular Cardiovascular exam: Present normal rate and rhythm GI/Abdominal GI/Abdominal exam: Present normal bowel sounds Extremities Exam Extremities exam: Present full ROM and tenderness; Absent normal inspection Additional comments: Right 5th toe surgically amputated. Right foot and right lower leg covered by surgical dressing. Back Exam Back exam: Present normal inspection Neurological Exam Neurological exam: Present alert and oriented X3 Skin Skin exam: Present erythema and warm; Absent intact Additional comments: Right 5th toe surgically amputated. Right foot and right lower leg covered by surgical dressing. OBJ DATA Labs CBC & Chem 7: 09/15/21 05:19 09/15/21 05:19 Labs: Abnormal Lab Results 09/15/21 09/15/21 09/14/21 05:19 05:19 05:20 RBC 3.97 L Hgb 12.3 L Hct 36.9 L Neut % (Auto) Lymph % (Auto) [place] % (Auto) 13.5 H Lymph # (Auto) 1.35 L [place] # (Auto) 0.99 H Absolute Neutrophils ESR Creatinine Glucose 146 H 166 H Hemoglobin A1c Calcium 8.4 L 8.4 L C-Reactive Protein Albumin 2.9 L 3.0 L Globulin Albumin/Globulin Ratio 0.8 L 0.9 L Procalcitonin 09/14/21 09/13/21 09/13/21 05:20 14:09 14:09 RBC 4.18 L Hgb 12.6 L Hct 38.4 L Neut % (Auto) Lymph % (Auto) 15.1 L [place] % (Auto) 14.3 H Lymph # (Auto) 1.12 L [place] # (Auto) 1.06 H Absolute Neutrophils ESR Creatinine Glucose Hemoglobin A1c 10.4 H Calcium C-Reactive Protein Albumin Globulin Albumin/Globulin Ratio Procalcitonin 1.12 H 09/13/21 09/13/21 09/13/21 14:09 14:09 14:09 RBC Hgb Hct Neut % (Auto) Lymph % (Auto) [place] % (Auto) Lymph # (Auto) [place] # (Auto) Absolute Neutrophils ESR 58 H Creatinine 1.3 H Glucose 183 H Hemoglobin A1c Calcium C-Reactive Protein 28.00 H Albumin Globulin 4.3 H Albumin/Globulin Ratio 0.9 L Procalcitonin 09/13/21 14:09 RBC Hgb Hct Neut % (Auto) 89.6 H Lymph % (Auto) 4.1 L [place] % (Auto) Lymph # (Auto) 0.38 L [place] # (Auto) Absolute Neutrophils 8.33 H ESR Creatinine Glucose Hemoglobin A1c Calcium C-Reactive Protein Albumin Globulin Albumin/Globulin Ratio Procalcitonin Meds: Medications Acetaminophen (Acetaminophen 325 Mg Tablet) 650 mg PO Q6HP PRN; Protocol PRN Reason: Per Pain Protocol/Fever > 101 Last Admin: 09/14/21 23:45 Dose: 650 mg Documented by: Albuterol/Ipratropium (Ipratropium/Albuterol 3 Ml Ampul.Neb) 3 ml NEB Q4HRT PRN PRN Reason: Wheezing Ascorbic Acid (Ascorbic Acid 500 Mg Tablet) 500 mg PO DAILY [facility] Last Admin: 09/15/21 08:52 Dose: 500 mg Documented by: Aspirin (Aspirin 325 Mg Enteric Coated Tablet) 325 mg PO DAILY [facility] Last Admin: 09/15/21 08:52 Dose: 325 mg Documented by: Citalopram Hydrobromide (Citalopram 20 Mg Tablet) 10 mg PO DAILY [facility] Last Admin: 09/15/21 08:52 Dose: 10 mg Documented by: Cyanocobalamin (Cyanocobalamin (Vitamin B-12) 500 Mcg Tablet) 500 mcg PO DAILY [facility] Last Admin: 09/15/21 08:52 Dose: 500 mcg Documented by: Dextrose (Dextrose 50% 50 Ml Vial) 0 ml IV UD PRN PRN Reason: Hypoglycemia Diagnostic Test (Pha) (Accu-Chek 1 Each Strip) 1 each FS [facility] Last Admin: 09/15/21 08:52 Dose: 1 each Documented by: Docusate Sodium (Docusate Sodium 100 Mg Capsule) 100 mg PO BID [facility] Last Admin: 09/15/21 08:56 Dose: Not Given Documented by: Glucose (Dextrose 31 Gm Oral.Susp) 15 gm PO PRN PRN PRN Reason: Hypoglycemia Heparin Sodium (Porcine) (Heparin 5,000 Unit/Ml Vial) 5,000 unit SQ Q12 [facility] Last Admin: 09/15/21 08:53 Dose: 5,000 unit Documented by: Piperacillin Sod/Tazobactam (Sod 3.375 gm/ Dextrose) 50 mls @ 100 mls/hr IV Q6H [facility]; Protocol Last Admin: 09/15/21 05:50 Dose: 100 mls/hr Documented by: Vancomycin HCl 1,500 mg/ (Sodium Chloride) 500 mls @ 333.3 mls/hr IV Q12H [facility] Last Admin: 09/15/21 10:04 Dose: 333 mls/hr Documented by: Insulin Human Lispro (Insulin Lispro 1 Unit/0.01 Ml Unit) 0 unit SQ [facility]; Protocol Last Admin: 09/15/21 08:51 Dose: 2 units Documented by: Morphine Sulfate (Morphine 4 Mg/Ml Vial) 4 mg IV Q4HP PRN; Protocol PRN Reason: Per Pain Protocol Ondansetron HCl (Ondansetron 4 Mg/2 Ml Vial) 4 mg IV Q6HP PRN PRN Reason: Nausea And Vomiting Cinnamon Bark 500 Mg (Capsule) 1 dose PO DAILY [facility] Last Admin: 09/15/21 08:53 Dose: Not Given Documented by: Senna (Sennosides 1 Tablet) 2 tab PO HS [facility] Last Admin: 09/14/21 21:03 Dose: Not Given Documented by: Sodium Chloride (0.9 % Sodium Chloride 10 Ml Syringe) 10 ml IV Q8 [facility] Last Admin: 09/15/21 05:51 Dose: 10 ml Documented by: Sodium Chloride (0.9 % Sodium Chloride 10 Ml Syringe) 10 ml IV Q8 [facility] Last Admin: 09/15/21 06:27 Dose: 10 ml Documented by: Vancomycin HCl (Vancomycin Per Pharmacy) 1 order IV UD [facility]; Protocol Vancomycin HCl (Vancomycin 1 Gm Vial) 1 gm IP ONCE [facility]; Protocol Last Admin: 09/14/21 12:39 Dose: 1 gm Documented by: Zolpidem Tartrate (Zolpidem 5 Mg Tablet) 5 mg PO HSP PRN PRN Reason: Insomnia Last Admin: 09/13/21 22:20 Dose: 5 mg Documented by: A/P Assessment and plan (1) Diabetic foot ulcer: Status: Acute Comment: Uncontrolled DM with CSSSI Right foot. Stage 4 ulcer, Needs surgical debridement and tissue c/s for futher treatment. (2) Osteomyelitis of foot, right, acute: Status: Acute (3) Type 2 diabetes mellitus: Status: Acute (4) Obesity (BMI 30-39.9): Status: Acute (5) Stage 1 acute kidney injury: Status: Acute (6) Cellulitis of right foot: Status: Acute Narrative A/P Narrative: Assessment and Plans: 1. Right diabetic foot with associated right foot and right lower leg cellulitis, +/- osteomyelitis: Stays in inpatient med surg Consult Dr. Davila, recs. appreciated s/p partial amputation of right 5th metatarsal with intraoperative wound culture by Dr. Heard on 09/14 CT right foot w/ contrast to look for osteomyelitis--> signs of osteomyelitis Wound culture, no growth to date Blood culture, no growth to date Intraoperative wound culture, no growth to date Procalcitonin Serial lactic acid cbc w/ auto diff in the morning to trend WBC Vancomcyin Zosyn Saline lock Tylenol PRN fever/mild pain [place] PRN moderate pain Morphine IV PRN severe pain Physical therapy Occupational therapy 2. Type 2 diabetes mellitus: HgA1c Hold metformin Low dose correctional scale insulin AC HS Accu Chek AC HS hypoglycemia protocol Diabetic diet 3. Stage 1 acute kidney injury: Avoid nephrotoxic agents Saline lock CMP in the morning to trend kidney functions 4. Morbid obesity: [employer] patient on life style modifications such as healthy diet and regular exercise in order to lose weight GI ppx: not currently indicated DVT ppx: Lovenox Code status: Full Prognosis: stable Disposition: inpatient med surg Time Spent With Patient Time: Total time spent is greater than 50% in coordination of care (as documented) at patient's floor/unit and/or counseling patient: Total time spent with greater than 50% in coordination of care (as documented) at patient's floor/unit and/or counseling patient:: Greater than 35 minutes QUALITY VTE Deep Vein Thrombosis/Pulmonary Embolism Present on Admission: No
[2021-09-15] MEDS ORDERED: LOPERAMIDE 2 MG CAPSULE PO PRN (11:01)
--- NOTE | 2021-09-15 16:03 | General Surgery Progress Note ---
SUBJECTIVE Subjective Patient information: Note initiated : 09/15/21 at 4:00 pm Service Date, if different from initiated Date: [] Patient: Jayjay Mcdonald 75 y/o M admitted on 09/13/21 for Right Partial Fifth Metatarsal Amputaion. Chief Complaint: [] Additional PMFSH (Level 3 Only): POD # 1. Patient is comfortable. RIGHT foot dressing CDI. Constitutional Vitals: Vital Signs Temp Pulse Resp BP Pulse Ox 98.2 F 73 16 160/85 90 09/15/21 12:00 09/15/21 03:40 09/15/21 12:00 09/15/21 12:00 09/15/21 12:00 Period Temp Pulse Resp BP Sys/Elizondo Pulse Ox Last 24 Hr 97.5 F-98.6 F 73 16-20 141-160/85-87 90-95 Intake and Output 09/15/21 09/15/21 09/15/21 05:59 13:59 21:59 Intake Total 950 550 Output Total 950 575 Balance 0 -25 Weight 292 lb 9.6 oz 292 lb 9.6 oz Patient Weight 09/16/21 05:59 Weight 292 lb 9.6 oz Intake & Output: Intake & Output 09/15/21 09/15/21 09/15/21 05:59 13:59 21:59 Intake Total 950 550 Output Total 950 575 Balance 0 -25 Weight 292 lb 9.6 oz 292 lb 9.6 oz Intake: IV 550 550 Zosyn 3.375 gm In Dextrose 5% 50 50 in Water 50 ml @ 100 mls/hr IV Q6H [facility] Rx#:[id number] Vancomycin 1,500 mg In Sodium 500 500 Chloride 0.9% 500 ml @ 333.3 mls/hr IV Q12H [facility] Rx#: [id number] Oral 400 Output: Void Amount 950 575 Other: Urine Appearance Clear Clear Urine Color Bright Yellow Bright Yellow Exam: AVSS. No changes PATEL Right foot dressings CDI Toes PWD. A/P Narrative A/P Narrative: Assessment: Satisfactory progress. Plan: Continue present management. Time Spent With Patient Time: Total time spent is greater than 50% in coordination of care (as documented) at patient's floor/unit and/or counseling patient:
[2021-09-15] MEDS: SENNOSIDES 1 TABLET PO SCH (21:01)
[2021-09-16] MEDS: 0.9 % SODIUM CHLORIDE 10 ML SYRINGE IV SCH ×3 (05:48→20:37)
[2021-09-16] MEDS: PIPERACILLIN SODIUM/TAZOBACTAM 3.375 GM in DEXTROSE 5% IN WATER 50 ML IV SCH ×4 (05:48→23:09)
[2021-09-16 06:57] LABS: Basophils # (Auto) 0.04 K/mcL (0.00-0.30); Basophils % (Auto) 0.7 % (0.0-2.0); Eosinophils # (Auto) 0.21 K/mcL (0.00-0.70); Eosinophils % (Auto) 3.4 % (0.0-7.0); Hematocrit 38.3 % (40.1-51.0); Hemoglobin 12.3 g/dL (13.7-17.5); Lymphocytes # (Auto) 1.35 K/mcL (1.50-4.80); Lymphocytes % (Auto) 22.2 % (15.5-49.0); Mean Corpuscular HGB Conc 32.1 g/dL (31.0-36.0); Mean Platelet Volume 9.6 fL (7.4-10.4); Monocytes # (Auto) 0.68 K/mcL (0.10-0.90); Monocytes % (Auto) 11.2 % (1.0-12.0); Neutrophils % (Auto) 62.5 % (38.0-78.0); Platelet Count 205 K/mcL (140-440); RBC 4.12 M/mcL (4.63-6.08); Red Cell Distribution Width 12.8 % (11.5-14.5); WBC 6.1 K/mcL (4.5-11.0)
--- NOTE | 2021-09-16 07:37 | EKG ---
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
[2021-09-16 07:57] LABS: ALT/SGPT 12 U/L (<40); AST/SGOT 15 U/L (<40); Albumin 2.6 gm/dL (3.2-5.2); Albumin/Globulin Ratio 0.6 (1.0-2.3); Alkaline Phosphatase 54 U/L (39-117); Bilirubin,Total 0.3 mg/dL (0.1-1.0); Blood Urea Nitrogen 14 mg/dL (8-23); Calcium 8.7 mg/dL (8.6-10.4); Carbon Dioxide 22 mmol/L (22-30); Chloride 101 mmol/L (96-108); Glomerular Filtration Rate 66; Glucose 170 mg/dL (70-105)
[2021-09-16] MEDS: ENOXAPARIN 40 MG/0.4 ML SYRINGE SQ SCH (09:03)
[2021-09-16] MEDS: INSULIN LISPRO 1 UNIT/0.01 ML UNIT SQ SCH ×4 (09:03→20:37)
[2021-09-16] MEDS: CITALOPRAM 20 MG TABLET PO SCH (09:04)
[2021-09-16] MEDS: ASPIRIN 325 MG ENTERIC COATED TABLET PO SCH (09:04)
[2021-09-16] MEDS: CYANOCOBALAMIN (VITAMIN B-12) 500 MCG TABLET PO SCH (09:04)
[2021-09-16] MEDS: INSULIN GLARGINE, HUMAN 1 UNIT/0.01 ML SQ SCH (09:04)
[2021-09-16] MEDS: ASCORBIC ACID 500 MG TABLET PO SCH (09:04)
[2021-09-16] MEDS: VANCOMYCIN 1,500 MG in 0.9 % SODIUM CHLORIDE 500 ML IV SCH ×2 (09:05→20:36)
[2021-09-16] MEDS: Cinnamon Bark 500 MG Capsule PO SCH (09:06)
[2021-09-16] MEDS: DOCUSATE SODIUM 100 MG CAPSULE PO SCH ×2 (09:06→20:54)
--- NOTE | 2021-09-16 10:33 | Internal Med Progress Note ---
SUBJECTIVE Subjective Patient information: Note initiated : 09/16/21 at 10:29 am Service Date, if different from initiated Date: [] Patient: Jayjay Mcdonald 75 y/o M admitted on 09/13/21 for Right Partial Fifth Metatarsal Amputaion. Chief Complaint: [] Interval history: History of present illness: Mr. Mcdonald is a 75 year old M history of type 2 diabetes, presenting with 3-day history of right foot wound. Patient stepped on a stone 5 weeks ago with his right foot with a resultant foot ulcer. He was treated with 3 weeks course of oral antibiotics. At the end of the therapy, he said that his wound healed up. About 3 days ago, after standing for 14 hours, he noticed the base of his right fifth toe ulcerated again with pustular discharge. He is also experiencing 6 out of 10, aching, continuous pain at the center site. Alleviating factors involving elevating the right leg. Exacerbating factors including standing on the right foot. There is also associated erythematic rash on the right lateral foot as well as under right eduardo. Patient is also complaining of associated fever and chills. He denies any change in appetite or GI upset such as nausea or vomiting. He denies any general body weakness. He went to Dr. Davila office earlier today and was being sent to our ED for further evaluations. Vital signs at ED presentations were all within normal limits. Labs significant for lack of leukocytosis with WBC 9.3. Serum lactic acid 0.9. Serum creatinine level 1.3 with baseline 1.0. Serum glucose level 183. Right foot x-ray showing probable wound with associated soft tissue swelling at the base of the right fifth digit. Osteomyelitis of the fifth metatarsal head is possible although not definite. 09/14: Afebrile overnight. Blood and wound cultures no growth to date. CT right foot signs of osteomyelitis. Dr. Heard to be performing surgery this morning. 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 Heard on 09/14. Fasting glucose 146 this morning. Blood and wound cultures no growth to date. Denies fever or chills or sweating. Denies pain of his right foot. Good energy. Good appetite. 09/16: Afebrile overnight. Intra-operative wound culture growing Beta strep. Fasting glucose 170 this morning. Denies any right foot pain. Denies fever or chills or sweating. Good energy. Good appetite. Constitutional Vitals: Vital Signs Temp Pulse Resp BP Pulse Ox 36.4 C 62 17 145/88 92 09/16/21 06:44 09/16/21 06:44 09/16/21 06:44 09/16/21 06:44 09/16/21 06:44 Period Temp Pulse Resp BP Sys/Elizondo Pulse Ox Last 24 Hr 36.4 C-36.8 C 62-74 16-20 127-160/81-89 90-94 Intake and Output 09/15/21 09/16/21 09/16/21 21:59 05:59 13:59 Intake Total 850 850 50 Output Total 1575 500 Balance -725 350 50 Weight 132.676 kg Intake & Output: Intake & Output 09/15/21 09/16/21 09/16/21 21:59 05:59 13:59 Intake Total 850 850 50 Output Total 1575 500 Balance -725 350 50 Weight 132.676 kg Intake: IV 50 550 50 Zosyn 3.375 gm In Dextrose 5% 50 50 50 in Water 50 ml @ 100 mls/hr IV Q6H [facility] Rx#:[id number] Vancomycin 1,500 mg In Sodium 500 Chloride 0.9% 500 ml @ 333.3 mls/hr IV Q12H [facility] Rx#: [id number] Oral 800 300 Output: Void Amount 1575 500 Other: Meal Dinner Percent of Meal Consumed 100% Feeding Ability Independent Urine Appearance Clear Clear Urine Color Bright Yellow Bright Yellow Urine Odor Normal # Bowel Movements 1 Head Head exam: Present atraumatic and normal inspection Eye Eye exam: Present normal appearance ENT ENT exam: Present mucous membranes moist, normal exam and normal external ear exam Neck Neck exam: Present normal inspection Respiratory Respiratory exam: Present normal respiratory exam Cardiovascular Cardiovascular exam: Present normal rate and rhythm GI/Abdominal GI/Abdominal exam: Present normal bowel sounds Extremities Exam Extremities exam: Present full ROM; Absent normal inspection or tenderness Additional comments: Right 5th toe surgically amputated. Back Exam Back exam: Present normal inspection Neurological Exam Neurological exam: Present alert and oriented X3 Skin Skin exam: Present intact and warm OBJ DATA Labs CBC & Chem 7: 09/16/21 05:25 09/16/21 05:25 Labs: Abnormal Lab Results 09/16/21 09/16/2109/15/21 05:25 05:25 05:19 RBC 4.12 L Hgb 12.3 L Hct 38.3 L Neut % (Auto) Lymph % (Auto) [place] % (Auto) Lymph # (Auto) 1.35 L [place] # (Auto) Absolute Neutrophils ESR Creatinine Glucose 170 H 146 H Hemoglobin A1c Calcium 8.4 L C-Reactive Protein Albumin 2.6 L 2.9 L Globulin 4.0 H Albumin/Globulin Ratio 0.6 L 0.8 L Procalcitonin 09/15/21 09/14/21 09/14/21 05:19 05:20 05:20 RBC 3.97 L 4.18 L Hgb 12.3 L 12.6 L Hct 36.9 L 38.4 L Neut % (Auto) Lymph % (Auto) 15.1 L [place] % (Auto) 13.5 H 14.3 H Lymph # (Auto) 1.35 L 1.12 L [place] # (Auto) 0.99 H 1.06 H Absolute Neutrophils ESR Creatinine Glucose 166 H Hemoglobin A1c Calcium 8.4 L C-Reactive Protein Albumin 3.0 L Globulin Albumin/Globulin Ratio 0.9 L Procalcitonin 09/13/21 09/13/21 09/13/21 14:09 14:09 14:09 RBC Hgb Hct Neut % (Auto) Lymph % (Auto) [place] % (Auto) Lymph # (Auto) [place] # (Auto) Absolute Neutrophils ESR Creatinine Glucose Hemoglobin A1c 10.4 H Calcium C-Reactive Protein 28.00 H Albumin Globulin Albumin/Globulin Ratio Procalcitonin 1.12 H 09/13/21 09/13/21 09/13/21 14:09 14:09 14:09 RBC Hgb Hct Neut % (Auto) 89.6 H Lymph % (Auto) 4.1 L [place] % (Auto) Lymph # (Auto) 0.38 L [place] # (Auto) Absolute Neutrophils 8.33 H ESR 58 H Creatinine 1.3 H Glucose 183 H Hemoglobin A1c Calcium C-Reactive Protein Albumin Globulin 4.3 H Albumin/Globulin Ratio 0.9 L Procalcitonin Meds: Medications Acetaminophen (Acetaminophen 325 Mg Tablet) 650 mg PO Q6HP PRN; Protocol PRN Reason: Per Pain Protocol/Fever > 101 Last Admin: 09/14/21 23:45 Dose: 650 mg Documented by: Albuterol/Ipratropium (Ipratropium/Albuterol 3 Ml Ampul.Neb) 3 ml NEB Q4HRT PRN PRN Reason: Wheezing Ascorbic Acid (Ascorbic Acid 500 Mg Tablet) 500 mg PO DAILY [facility] Last Admin: 09/16/21 09:04 Dose: 500 mg Documented by: Aspirin (Aspirin 325 Mg Enteric Coated Tablet) 325 mg PO DAILY [facility] Last Admin: 09/16/21 09:04 Dose: 325 mg Documented by: Citalopram Hydrobromide (Citalopram 20 Mg Tablet) 10 mg PO DAILY [facility] Last Admin: 09/16/21 09:04 Dose: 10 mg Documented by: Cyanocobalamin (Cyanocobalamin (Vitamin B-12) 500 Mcg Tablet) 500 mcg PO DAILY [facility] Last Admin: 09/16/21 09:04 Dose: 500 mcg Documented by: Dextrose (Dextrose 50% 50 Ml Vial) 0 ml IV UD PRN PRN Reason: Hypoglycemia Diagnostic Test (Pha) (Accu-Chek 1 Each Strip) [address] [facility] Last Admin: 09/16/21 09:05 Dose: 1 each Documented by: Docusate Sodium (Docusate Sodium 100 Mg Capsule) 100 mg PO BID [facility] Last Admin: 09/16/21 09:06 Dose: Not Given Documented by: Enoxaparin Sodium (Enoxaparin 40 Mg/0.4 Ml Syringe) 40 mg SQ DAILY [facility] Last Admin: 09/16/21 09:03 Dose: 40 mg Documented by: Glucose (Dextrose 31 Gm Oral.Susp) 15 gm PO PRN PRN PRN Reason: Hypoglycemia Piperacillin Sod/Tazobactam (Sod 3.375 gm/ Dextrose) 50 mls @ 100 mls/hr IV Q6H [facility]; Protocol Last Infusion: 09/16/21 06:18 Dose: Infused Documented by: Vancomycin HCl 1,500 mg/ (Sodium Chloride) 500 mls @ 333.3 mls/hr IV Q12H [facility] Last Admin: 09/16/21 09:05 Dose: 333 mls/hr Documented by: Insulin Glargine (Insulin Glargine, Human 1 Unit/0.01 Ml) 10 unit SQ DAILY [facility] Last Admin: 09/16/21 09:04 Dose: 10 unit Documented by: Insulin Human Lispro (Insulin Lispro 1 Unit/0.01 Ml Unit) 0 unit SQ [facility]; Protocol Last Admin: 09/16/21 09:03 Dose: 3 units Documented by: Loperamide HCl (Loperamide 2 Mg Capsule) 2 mg PO PRN PRN PRN Reason: Diarrhea Last Admin: 09/15/21 17:47 Dose: 2 mg Documented by: Morphine Sulfate (Morphine 4 Mg/Ml Vial) 4 mg IV Q4HP PRN; Protocol PRN Reason: Per Pain Protocol Ondansetron HCl (Ondansetron 4 Mg/2 Ml Vial) 4 mg IV Q6HP PRN PRN Reason: Nausea And Vomiting Cinnamon Bark 500 Mg (Capsule) 1 dose PO DAILY [facility] Last Admin: 09/16/21 09:06 Dose: Not Given Documented by: Senna (Sennosides 1 Tablet) 2 tab PO HS [facility] Last Admin: 09/15/21 21:01 Dose: Not Given Documented by: Sodium Chloride (0.9 % Sodium Chloride 10 Ml Syringe) 10 ml IV Q8 [facility] Last Admin: 09/16/21 05:48 Dose: 10 ml Documented by: Vancomycin HCl (Vancomycin Per Pharmacy) [address] [facility]; Protocol Zolpidem Tartrate (Zolpidem 5 Mg Tablet) 5 mg PO HSP PRN PRN Reason: Insomnia Last Admin: 09/13/21 22:20 Dose: 5 mg Documented by: A/P Assessment and plan (1) Diabetic foot ulcer: Status: Acute Comment: Uncontrolled DM with CSSSI Right foot. Stage 4 ulcer, Needs surgical debridement and tissue c/s for futher treatment. (2) Osteomyelitis of foot, right, acute: Status: Acute (3) Type 2 diabetes mellitus: Status: Acute (4) Obesity (BMI 30-39.9): Status: Acute (5) Stage 1 acute kidney injury: Status: Acute (6) Cellulitis of right foot: Status: Acute Narrative A/P Narrative: Assessment and Plans: 1. Right diabetic foot with associated right foot and right lower leg cellulitis, +/- osteomyelitis: Stays in inpatient med surg Consult Dr. Davila, recs. appreciated s/p partial amputation of right 5th metatarsal with intraoperative wound culture by Dr. Heard on 09/14 CT right foot w/ contrast to look for osteomyelitis--> signs of osteomyelitis Wound culture, no growth to date Blood culture, no growth to date Intraoperative wound culture, growing beta strep Procalcitonin Serial lactic acid cbc w/ auto diff in the morning to trend WBC Vancomycin Zosyn Saline lock Tylenol PRN fever/mild pain [place] PRN moderate pain Morphine IV PRN severe pain Physical therapy Occupational therapy 2. Type 2 diabetes mellitus: HgA1c Hold metformin Low dose correctional scale insulin AC HS Accu Chek AC HS hypoglycemia protocol Diabetic diet 3. Stage 1 acute kidney injury: Avoid nephrotoxic agents Saline lock CMP in the morning to trend kidney functions 4. Morbid obesity: [employer] patient on life style modifications such as healthy diet and regular exercise in order to lose weight GI ppx: not currently indicated DVT ppx: Lovenox Code status: Full Prognosis: stable Disposition: inpatient med surg Time Spent With Patient Time: Total time spent is greater than 50% in coordination of care (as documented) at patient's floor/unit and/or counseling patient: Total time spent with greater than 50% in coordination of care (as documented) at patient's floor/unit and/or counseling patient:: 25 - 35 minutes QUALITY VTE Deep Vein Thrombosis/Pulmonary Embolism Present on Admission: No
[2021-09-16] MEDS: ZOLPIDEM 5 MG TABLET PO PRN (20:36)
[2021-09-16] MEDS: SENNOSIDES 1 TABLET PO SCH (20:54)
[2021-09-17] MEDS: 0.9 % SODIUM CHLORIDE 10 ML SYRINGE IV SCH ×3 (06:01→20:53)
[2021-09-17] MEDS: PIPERACILLIN SODIUM/TAZOBACTAM 3.375 GM in DEXTROSE 5% IN WATER 50 ML IV SCH ×4 (06:01→23:30)
[2021-09-17 07:44] LABS: Basophils # (Auto) 0.08 K/mcL (0.00-0.30); Basophils % (Auto) 1.2 % (0.0-2.0); Eosinophils # (Auto) 0.27 K/mcL (0.00-0.70); Eosinophils % (Auto) 3.9 % (0.0-7.0); Hematocrit 39.2 % (40.1-51.0); Hemoglobin 13.1 g/dL (13.7-17.5); Lymphocytes # (Auto) 1.63 K/mcL (1.50-4.80); Lymphocytes % (Auto) 23.6 % (15.5-49.0); Mean Corpuscular HGB Conc 33.4 g/dL (31.0-36.0); Mean Platelet Volume 9.4 fL (7.4-10.4); Monocytes % (Auto) 10.1 % (1.0-12.0); Neutrophils % (Auto) 61.2 % (38.0-78.0); Platelet Count 248 K/mcL (140-440); RBC 4.26 M/mcL (4.63-6.08); Red Cell Distribution Width 12.8 % (11.5-14.5); WBC 6.9 K/mcL (4.5-11.0)
[2021-09-17] MEDS: INSULIN GLARGINE, HUMAN 1 UNIT/0.01 ML SQ SCH (07:46)
[2021-09-17] MEDS: ASPIRIN 325 MG ENTERIC COATED TABLET PO SCH (07:46)
[2021-09-17] MEDS: CYANOCOBALAMIN (VITAMIN B-12) 500 MCG TABLET PO SCH (07:46)
[2021-09-17] MEDS: ASCORBIC ACID 500 MG TABLET PO SCH (07:46)
[2021-09-17] MEDS: DOCUSATE SODIUM 100 MG CAPSULE PO SCH ×2 (07:46→20:38)
[2021-09-17] MEDS: ENOXAPARIN 40 MG/0.4 ML SYRINGE SQ SCH (07:46)
[2021-09-17] MEDS: INSULIN LISPRO 1 UNIT/0.01 ML UNIT SQ SCH ×4 (07:46→20:53)
[2021-09-17] MEDS: CITALOPRAM 20 MG TABLET PO SCH (07:52)
[2021-09-17] MEDS: Cinnamon Bark 500 MG Capsule PO SCH (07:52)
[2021-09-17 08:02] LABS: ALT/SGPT 27 U/L (<40); AST/SGOT 38 U/L (<40); Albumin/Globulin Ratio 0.8 (1.0-2.3); Alkaline Phosphatase 59 U/L (39-117); Bilirubin,Total 0.3 mg/dL (0.1-1.0); Blood Urea Nitrogen 16 mg/dL (8-23); Calcium 8.8 mg/dL (8.6-10.4); Carbon Dioxide 23 mmol/L (22-30); Chloride 102 mmol/L (96-108); Globulin 3.9 gm/dL (2.2-3.7); Glomerular Filtration Rate 74; Glucose 154 mg/dL (70-105)
[2021-09-17] MEDS: VANCOMYCIN 1,500 MG in 0.9 % SODIUM CHLORIDE 500 ML IV SCH ×2 (08:25→21:22)
--- NOTE | 2021-09-17 11:03 | Internal Med Progress Note ---
SUBJECTIVE Subjective Patient information: Note initiated : 09/17/21 at 11:01 am Service Date, if different from initiated Date: [] Patient: Jayjay Mcdonald 75 y/o M admitted on 09/13/21 for Right Partial Fifth Metatarsal Amputaion. Chief Complaint: [] Interval history: History of present illness: Mr. Mcdonald is a 75 year old M history of type 2 diabetes, presenting with 3-day history of right foot wound. Patient stepped on a stone 5 weeks ago with his right foot with a resultant foot ulcer. He was treated with 3 weeks course of oral antibiotics. At the end of the therapy, he said that his wound healed up. About 3 days ago, after standing for 14 hours, he noticed the base of his right fifth toe ulcerated again with pustular discharge. He is also experiencing 6 out of 10, aching, continuous pain at the center site. Alleviating factors involving elevating the right leg. Exacerbating factors including standing on the right foot. There is also associated erythematic rash on the right lateral foot as well as under right eduardo. Patient is also complaining of associated fever and chills. He denies any change in appetite or GI upset such as nausea or vomiting. He denies any general body weakness. He went to Dr. Davila office earlier today and was being sent to our ED for further evaluations. Vital signs at ED presentations were all within normal limits. Labs significant for lack of leukocytosis with WBC 9.3. Serum lactic acid 0.9. Serum creatinine level 1.3 with baseline 1.0. Serum glucose level 183. Right foot x-ray showing probable wound with associated soft tissue swelling at the base of the right fifth digit. Osteomyelitis of the fifth metatarsal head is possible although not definite. 09/14: Afebrile overnight. Blood and wound cultures no growth to date. CT right foot signs of osteomyelitis. Dr. Heard to be performing surgery this morning. 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 Heard on 09/14. Fasting glucose 146 this morning. Blood and wound cultures no growth to date. Denies fever or chills or sweating. Denies pain of his right foot. Good energy. Good appetite. 09/16: Afebrile overnight. Intra-operative wound culture growing Beta strep. Fasting glucose 170 this morning. Denies any right foot pain. Denies fever or chills or sweating. Good energy. Good appetite. 09/17: Afebrile overnight. Intra-operative wound culture growing Beta strep. Fasting glucose 154 this morning. Denies any right foot pain. Denies fever or chills or sweating. Good energy. Good appetite. Constitutional Vitals: Vital Signs Temp Pulse Resp BP Pulse Ox 37.0 C 62 20 160/92 94 09/17/21 07:09 09/17/21 07:09 09/17/21 07:09 09/17/21 07:09 09/17/21 07:09 Period Temp Pulse Resp BP Sys/Elizondo Pulse Ox Last 24 Hr 36.4 C-37.0 C 60-72 16-20 132-169/84-92 92-94 Intake and Output 09/16/21 09/17/21 09/17/21 21:59 05:59 13:59 Intake Total 500 1350 550 Output Total 1350 1200 250 Balance -850 150 300 Weight 130.771 kg Intake & Output: Intake & Output 09/16/21 09/17/21 09/17/21 21:59 05:59 13:59 Intake Total 500 1350 550 Output Total 1350 1200 250 Balance -850 150 300 Weight 130.771 kg Intake: IV 50 550 550 Zosyn 3.375 gm In Dextrose 5% 50 50 50 in Water 50 ml @ 100 mls/hr IV Q6H [facility] Rx#:[id number] Vancomycin 1,500 mg In Sodium 500 500 Chloride 0.9% 500 ml @ 333.3 mls/hr IV Q12H [facility] Rx#: [id number] Oral 450 800 Output: Void Amount 1350 1200 250 Other: Urine Appearance Clear Clear Clear Urine Color Bright Yellow Bright Yellow Bright Yellow Urine Odor Normal Head Head exam: Present atraumatic and normal inspection Eye Eye exam: Present normal appearance ENT ENT exam: Present mucous membranes moist, normal exam and normal external ear exam Neck Neck exam: Present normal inspection Respiratory Respiratory exam: Present normal respiratory exam Cardiovascular Cardiovascular exam: Present normal rate and rhythm GI/Abdominal GI/Abdominal exam: Present normal bowel sounds Extremities Exam Extremities exam: Present full ROM; Absent normal inspection or tenderness Additional comments: Right 5th toe surgically amputated Back Exam Back exam: Present normal inspection Neurological Exam Neurological exam: Present alert and oriented X3 Skin Skin exam: Present intact and warm OBJ DATA Labs CBC & Chem 7: 09/17/21 05:17 09/17/21 05:17 Labs: Abnormal Lab Results 09/17/21 09/17/21 09/16/21 05:17 05:17 05:25 RBC 4.26 L Hgb 13.1 L Hct 39.2 L [place] % (Auto) Lymph # (Auto) [place] # (Auto) Glucose 154 H 170 H Calcium Albumin 3.0 L 2.6 L Globulin 3.9 H 4.0 H Albumin/Globulin Ratio 0.8 L 0.6 L 09/16/21 09/15/21 09/15/21 05:25 05:19 05:19 RBC 4.12 L 3.97 L Hgb 12.3 L 12.3 L Hct 38.3 L 36.9 L [place] % (Auto) 13.5 H Lymph # (Auto) 1.35 L 1.35 L [place] # (Auto) 0.99 H Glucose 146 H Calcium 8.4 L Albumin 2.9 L Globulin Albumin/Globulin Ratio 0.8 L Meds: Medications Acetaminophen (Acetaminophen 325 Mg Tablet) 650 mg PO Q6HP PRN; Protocol PRN Reason: Per Pain Protocol/Fever > 101 Last Admin: 09/14/21 23:45 Dose: 650 mg Documented by: Albuterol/Ipratropium (Ipratropium/Albuterol 3 Ml Ampul.Neb) 3 ml NEB Q4HRT PRN PRN Reason: Wheezing Ascorbic Acid (Ascorbic Acid 500 Mg Tablet) 500 mg PO DAILY [facility] Last Admin: 09/17/21 07:46 Dose: 500 mg Documented by: Aspirin (Aspirin 325 Mg Enteric Coated Tablet) 325 mg PO DAILY [facility] Last Admin: 09/17/21 07:46 Dose: 325 mg Documented by: Citalopram Hydrobromide (Citalopram 20 Mg Tablet) 10 mg PO DAILY [facility] Last Admin: 09/17/21 07:52 Dose: 10 mg Documented by: Cyanocobalamin (Cyanocobalamin (Vitamin B-12) 500 Mcg Tablet) 500 mcg PO DAILY [facility] Last Admin: 09/17/21 07:46 Dose: 500 mcg Documented by: Dextrose (Dextrose 50% 50 Ml Vial) 0 ml IV UD PRN PRN Reason: Hypoglycemia Diagnostic Test (Pha) (Accu-Chek 1 Each Strip) 1 each FS ACHS [facility] Last Admin: 09/17/21 06:57 Dose: 1 each Documented by: Docusate Sodium (Docusate Sodium 100 Mg Capsule) 100 mg PO BID [facility] Last Admin: 09/17/21 07:46 Dose: Not Given Documented by: Enoxaparin Sodium (Enoxaparin 40 Mg/0.4 Ml Syringe) 40 mg SQ DAILY [facility] Last Admin: 09/17/21 07:46 Dose: 40 mg Documented by: Glucose (Dextrose 31 Gm Oral.Susp) 15 gm PO PRN PRN PRN Reason: Hypoglycemia Piperacillin Sod/Tazobactam (Sod 3.375 gm/ Dextrose) 50 mls @ 100 mls/hr IV Q6H [facility]; Protocol Last Infusion: 09/17/21 07:08 Dose: Infused Documented by: Vancomycin HCl 1,500 mg/ (Sodium Chloride) 500 mls @ 333.3 mls/hr IV Q12H [facility] Last Infusion: 09/17/21 10:08 Dose: Infused Documented by: Insulin Glargine (Insulin Glargine, Human 1 Unit/0.01 Ml) 10 unit SQ DAILY [facility] Last Admin: 09/17/21 07:46 Dose: 10 unit Documented by: Insulin Human Lispro (Insulin Lispro 1 Unit/0.01 Ml Unit) 0 unit SQ [facility]; Protocol Last Admin: 09/17/21 07:46 Dose: 1 units Documented by: Loperamide HCl (Loperamide 2 Mg Capsule) 2 mg PO PRN PRN PRN Reason: Diarrhea Last Admin: 09/15/21 17:47 Dose: 2 mg Documented by: Morphine Sulfate (Morphine 4 Mg/Ml Vial) 4 mg IV Q4HP PRN; Protocol PRN Reason: Per Pain Protocol Ondansetron HCl (Ondansetron 4 Mg/2 Ml Vial) 4 mg IV Q6HP PRN PRN Reason: Nausea And Vomiting Cinnamon Bark 500 Mg (Capsule) 1 dose PO DAILY [facility] Last Admin: 09/17/21 07:52 Dose: Not Given Documented by: Senna (Sennosides 1 Tablet) 2 tab PO [facility] Last Admin: 09/16/21 20:54 Dose: Not Given Documented by: Sodium Chloride (0.9 % Sodium Chloride 10 Ml Syringe) 10 ml IV Q8 [facility] Last Admin: 09/17/21 06:01 Dose: 10 ml Documented by: Vancomycin HCl (Vancomycin Per Pharmacy) 1 order IV UD [facility]; Protocol Zolpidem Tartrate (Zolpidem 5 Mg Tablet) 5 mg PO HSP PRN PRN Reason: Insomnia Last Admin: 09/16/21 20:36 Dose: 5 mg Documented by: A/P Assessment and plan (1) Diabetic foot ulcer: Status: Acute Comment: Uncontrolled DM with CSSSI Right foot. Stage 4 ulcer, Needs surgical debridement and tissue c/s for futher treatment. (2) Osteomyelitis of foot, right, acute: Status: Acute (3) Type 2 diabetes mellitus: Status: Acute (4) Obesity (BMI 30-39.9): Status: Acute (5) Stage 1 acute kidney injury: Status: Acute (6) Cellulitis of right foot: Status: Acute Narrative A/P Narrative: Assessment and Plans: 1. Right diabetic foot with associated right foot and right lower leg cellulitis, +/- osteomyelitis: Stays in inpatient med surg Consult Dr. Davila, recs. appreciated s/p partial amputation of right 5th metatarsal with intraoperative wound culture by Dr. Heard on 09/14 CT right foot w/ contrast to look for osteomyelitis--> signs of osteomyelitis Wound culture, no growth to date Blood culture, no growth to date Intraoperative wound culture, growing beta strep Procalcitonin Serial lactic acid cbc w/ auto diff in the morning to trend WBC Vancomycin Zosyn Saline lock Tylenol PRN fever/mild pain [place] PRN moderate pain Morphine IV PRN severe pain Physical therapy Occupational therapy 2. Type 2 diabetes mellitus: HgA1c Hold metformin Low dose correctional scale insulin AC HS Accu Chek AC HS hypoglycemia protocol Diabetic diet 3. Stage 1 acute kidney injury: Avoid nephrotoxic agents Saline lock CMP in the morning to trend kidney functions 4. 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
--- NOTE | 2021-09-17 12:23 | Internal Med Progress Note ---
SUBJECTIVE Subjective Patient information: Note initiated : 09/17/21 at 12:17 pm Service Date, if different from initiated Date: [] Patient: Jayjay Mcdonald 75 y/o M admitted on 09/13/21 for Right Partial Fifth Metatarsal Amputaion. Chief Complaint: [] Interval history: History of present illness: Mr. Mcdonald is a 75 year old M history of type 2 diabetes, presenting with 3-day history of right foot wound. Patient stepped on a stone 5 weeks ago with his right foot with a resultant foot ulcer. He was treated with 3 weeks course of oral antibiotics. At the end of the therapy, he said that his wound healed up. About 3 days ago, after standing for 14 hours, he noticed the base of his right fifth toe ulcerated again with pustular discharge. He is also experiencing 6 out of 10, aching, continuous pain at the center site. Alleviating factors involving elevating the right leg. Exacerbating factors including standing on the right foot. There is also associated erythematic rash on the right lateral foot as well as under right eduardo. Patient is also complaining of associated fever and chills. He denies any change in appetite or GI upset such as nausea or vomiting. He denies any general body weakness. He went to Dr. Davila office earlier today and was being sent to our ED for further evaluations. Vital signs at ED presentations were all within normal limits. Labs significant for lack of leukocytosis with WBC 9.3. Serum lactic acid 0.9. Serum creatinine level 1.3 with baseline 1.0. Serum glucose level 183. Right foot x-ray showing probable wound with associated soft tissue swelling at the base of the right fifth digit. Osteomyelitis of the fifth metatarsal head is possible although not definite. 09/14: Afebrile overnight. Blood and wound cultures no growth to date. CT right foot signs of osteomyelitis. Dr. Heard to be performing surgery this morning. 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 Heard on 09/14. Fasting glucose 146 this morning. Blood and wound cultures no growth to date. Denies fever or chills or sweating. Denies pain of his right foot. Good energy. Good appetite. 09/16: Afebrile overnight. Intra-operative wound culture growing Beta strep. Fasting glucose 170 this morning. Denies any right foot pain. Denies fever or chills or sweating. Good energy. Good appetite. 09/17: Afebrile overnight. Intra-operative wound culture growing Beta strep. Fasting glucose 154 this morning. Denies any right foot pain. Denies fever or chills or sweating. Good energy. Good appetite. 09/18 Constitutional Vitals: Vital Signs Temp Pulse Resp BP Pulse Ox 98.6 F 62 20 160/92 94 09/17/21 07:09 09/17/21 07:09 09/17/21 07:09 09/17/21 07:09 09/17/21 07:09 Period Temp Pulse Resp BP Sys/Elizondo Pulse Ox Last 24 Hr 97.5 F-98.6 F 60-72 16-20 132-169/84-92 92-94 Intake and Output 09/16/21 09/17/21 09/17/21 21:59 05:59 13:59 Intake Total 500 1350 550 Output Total 1350 1200 250 Balance -850 150 300 Weight 130.771 kg Intake & Output: Intake & Output 09/16/21 09/17/21 09/17/21 21:59 05:59 13:59 Intake Total 500 1350 550 Output Total 1350 1200 250 Balance -850 150 300 Weight 130.771 kg Intake: IV 50 550 550 Zosyn 3.375 gm In Dextrose 5% 50 50 50 in Water 50 ml @ 100 mls/hr IV Q6H [facility] Rx#:[id number] Vancomycin 1,500 mg In Sodium 500 500 Chloride 0.9% 500 ml @ 333.3 mls/hr IV Q12H [facility] Rx#: [id number] Oral 450 800 Output: Void Amount 1350 1200 250 Other: Urine Appearance Clear Clear Clear Urine Color Bright Yellow Bright Yellow Bright Yellow Urine Odor Normal Exam: General: Alert, Awake, No acute Distress Eyes/N/T: EOMI, Head/Neck: neck supple, CV: RRR, No murmurs, Pulm: Clear b/l, no wheezing/rhonchi/rales Abd: soft, nontender, +BS x4 Ext: no clubbing/cyanosis/edema, Right 5th toe surgically amputated Neuro: Alert, no focal deficits, moves all extremities, Skin: warm/dry OBJ DATA Labs CBC & Chem 7: 09/17/21 05:17 09/17/21 05:17 Labs: Abnormal Lab Results 09/17/21 09/17/21 09/16/21 05:17 05:17 05:25 RBC 4.26 L Hgb 13.1 L Hct 39.2 L [place] % (Auto) Lymph # (Auto) [place] # (Auto) Glucose 154 H 170 H Calcium Albumin 3.0 L 2.6 L Globulin 3.9 H 4.0 H Albumin/Globulin Ratio 0.8 L 0.6 L 09/16/21 09/15/21 09/15/21 05:25 05:19 05:19 RBC 4.12 L 3.97 L Hgb 12.3 L 12.3 L Hct 38.3 L 36.9 L [place] % (Auto) 13.5 H Lymph # (Auto) 1.35 L 1.35 L [place] # (Auto) 0.99 H Glucose 146 H Calcium 8.4 L Albumin 2.9 L Globulin Albumin/Globulin Ratio 0.8 L Meds: Medications Acetaminophen (Acetaminophen 325 Mg Tablet) 650 mg PO Q6HP PRN; Protocol PRN Reason: Per Pain Protocol/Fever > 101 Last Admin: 09/14/21 23:45 Dose: 650 mg Documented by: Albuterol/Ipratropium (Ipratropium/Albuterol 3 Ml Ampul.Neb) 3 ml NEB Q4HRT PRN PRN Reason: Wheezing Ascorbic Acid (Ascorbic Acid 500 Mg Tablet) 500 mg PO DAILY [facility] Last Admin: 09/17/21 07:46 Dose: 500 mg Documented by: Aspirin (Aspirin 325 Mg Enteric Coated Tablet) 325 mg PO DAILY [facility] Last Admin: 09/17/21 07:46 Dose: 325 mg Documented by: Citalopram Hydrobromide (Citalopram 20 Mg Tablet) 10 mg PO DAILY [facility] Last Admin: 09/17/21 07:52 Dose: 10 mg Documented by: Cyanocobalamin (Cyanocobalamin (Vitamin B-12) 500 Mcg Tablet) 500 mcg PO DAILY [facility] Last Admin: 09/17/21 07:46 Dose: 500 mcg Documented by: Dextrose (Dextrose 50% 50 Ml Vial) 0 ml IV UD PRN PRN Reason: Hypoglycemia Diagnostic Test (Pha) (Accu-Chek 1 Each Strip) 1 each FS ACHS [facility] Last Admin: 09/17/21 11:17 Dose: 1 each Documented by: Docusate Sodium (Docusate Sodium 100 Mg Capsule) 100 mg PO BID [facility] Last Admin: 09/17/21 07:46 Dose: Not Given Documented by: Enoxaparin Sodium (Enoxaparin 40 Mg/0.4 Ml Syringe) 40 mg SQ DAILY [facility] Last Admin: 09/17/21 07:46 Dose: 40 mg Documented by: Glucose (Dextrose 31 Gm Oral.Susp) 15 gm PO PRN PRN PRN Reason: Hypoglycemia Piperacillin Sod/Tazobactam (Sod 3.375 gm/ Dextrose) 50 mls @ 100 mls/hr IV Q6H [facility]; Protocol Last Admin: 09/17/21 11:28 Dose: 100 mls/hr Documented by: Vancomycin HCl 1,500 mg/ (Sodium Chloride) 500 mls @ 333.3 mls/hr IV Q12H [facility] Last Infusion: 09/17/21 10:08 Dose: Infused Documented by: Insulin Glargine (Insulin Glargine, Human 1 Unit/0.01 Ml) 10 unit SQ DAILY [facility] Last Admin: 09/17/21 07:46 Dose: 10 unit Documented by: Insulin Human Lispro (Insulin Lispro 1 Unit/0.01 Ml Unit) 0 unit SQ [facility]; Protocol Last Admin: 09/17/21 11:28 Dose: 2 units Documented by: Loperamide HCl (Loperamide 2 Mg Capsule) 2 mg PO PRN PRN PRN Reason: Diarrhea Last Admin: 09/15/21 17:47 Dose: 2 mg Documented by: Morphine Sulfate (Morphine 4 Mg/Ml Vial) 4 mg IV Q4HP PRN; Protocol PRN Reason: Per Pain Protocol Ondansetron HCl (Ondansetron 4 Mg/2 Ml Vial) 4 mg IV Q6HP PRN PRN Reason: Nausea And Vomiting Cinnamon Bark 500 Mg (Capsule) 1 dose PO DAILY [facility] Last Admin: 09/17/21 07:52 Dose: Not Given Documented by: Senna (Sennosides 1 Tablet) 2 tab PO HS [facility] Last Admin: 09/16/21 20:54 Dose: Not Given Documented by: Sodium Chloride (0.9 % Sodium Chloride 10 Ml Syringe) 10 ml IV Q8 [facility] Last Admin: 09/17/21 06:01 Dose: 10 ml Documented by: Vancomycin HCl (Vancomycin Per Pharmacy) 1 order IV UD [facility]; Protocol Zolpidem Tartrate (Zolpidem 5 Mg Tablet) 5 mg PO HSP PRN PRN Reason: Insomnia Last Admin: 09/16/21 20:36 Dose: 5 mg Documented by: A/P Narrative A/P Narrative: Assessment and Plans: *Right diabetic foot/leg cellulitis & osteo 5th digit: 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 Davila & Dr. 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
--- NOTE | 2021-09-17 12:32 | Discharge Summary ---
Discharge Provider Provider Patient information: Note initiated : 09/17/21 at 12:30 pm Service Date, if different from initiated Date: [] Patient: Jayjay Mcdonald 75 y/o M admitted on 09/13/21 for Right Partial Fifth Metatarsal Amputaion. Chief Complaint: [] Date of admission: 09/13/21 20:28 Discharge date: 09/18/21 Primary care physician: Benny John Consults: 09/13/21 Consult to Physician [CONS] Stat Comment: Consulting Provider: Peter Nunez Reason For Exam: Physician to Consult 09/13/21 20:56 Consult to Physician [CONS] Stat Comment: Consulting Provider: Krystian Davila Reason For Exam: Physician to Consult Consult to Physician [CONS] Stat Comment: Consulting Provider: Live Heard Reason For Exam: Physician to Consult Discharge Meds Discharge Medications Home Medications ascorbic acid (vitamin C) 500 mg tablet (Vitamin C) 1,000 mg PO DAILY 01/02/16 [History Confirmed 09/13/21 Last Taken 09/11/21 08:00] cinnamon bark 500 mg capsule 500 mg PO DAILY 01/02/16 [History Confirmed 09/13/21 Last Taken 09/11/21 08:00] cyanocobalamin (vitamin B-12) 500 mcg tablet 500 mcg PO DAILY 01/02/16 [History Confirmed 09/13/21 Last Taken 09/11/21 08:00] insulin glargine 100 unit/mL (3 mL) subcutaneous pen (Lantus Solostar U-100 Insulin) 10 unit SUBCUT DAILY 09/13/21 [History Confirmed 09/13/21 Last Taken 09/11/21 20:00] ceftriaxone 2 gram intravenous solution 2 g IV Q24H #11 ea 09/18/21 [Rx Last Taken Unknown] COURSE Hospital Course Hospital course: History of present illness: Mr. Mcdonald is a 75 year old M history of type 2 diabetes, presenting with 3-day history of right foot wound. Patient stepped on a stone 5 weeks ago with his right foot with a resultant foot ulcer. He was treated with 3 weeks course of oral antibiotics. At the end of the therapy, he said that his wound healed up. About 3 days ago, after standing for 14 hours, he noticed the base of his right fifth toe ulcerated again with pustular discharge. He is also experiencing 6 out of 10, aching, continuous pain at the center site. Alleviating factors involving elevating the right leg. Exacerbating factors including standing on the right foot. There is also associated erythematic rash on the right lateral foot as well as under right eduardo. Patient is also complaining of associated fever and chills. He denies any change in appetite or GI upset such as nausea or vomiting. He denies any general body weakness. He went to Dr. Davila office earlier today and was being sent to our ED for further evaluations. Vital signs at ED presentations were all within normal limits. Labs significant for lack of leukocytosis with WBC 9.3. Serum lactic acid 0.9. Serum creatinine level 1.3 with baseline 1.0. Serum glucose level 183. Right foot x-ray showing probable wound with associated soft tissue swelling at the base of the right fifth digit. Osteomyelitis of the fifth metatarsal head is possible although not definite. 09/14: Afebrile overnight. Blood and wound cultures no growth to date. CT right foot signs of osteomyelitis. Dr. Heard to be performing surgery this morning. 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 Heard on 09/14. Fasting glucose 146 this morning. Blood and wound cultures no growth to date. Denies fever or chills or sweating. Denies pain of his right foot. Good energy. Good appetite. 09/16: Afebrile overnight. Intra-operative wound culture growing Beta strep. Fasting glucose 170 this morning. Denies any right foot pain. Denies fever or chills or sweating. Good energy. Good appetite. 09/17: Afebrile overnight. Intra-operative wound culture growing Beta strep. Fasting glucose 154 this morning. Denies any right foot pain. Denies fever or chills or sweating. Good energy. Good appetite. 09/18 No overnight event or new complaints. Wound culture growing Streptococcus canis. Patient does have dogs at home with sleep with him. 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 Davila & Dr. 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 such as healthy diet and regular exercise in order to lose weight Discharge diagnosis: Right diabetic foot leg cellulitis and osteo BRE Secondary discharge diagnosis: Diabetes morbid obesity Time Spent with Patient Time attestation: Total time spent providing and/or coordinating discharge services: Time spent: Greater than 30 minutes EXAM Constitutional Vitals: Temp Pulse Resp BP Pulse Ox 98.6 F 62 20 160/92 94 09/17/21 07:09 09/17/21 07:09 09/17/21 07:09 09/17/21 07:09 09/17/21 07:09 Discharge Data Data Completed and Pending Labs on day of discharge: Labs from last 24 hours 09/17/21 09/17/21 05:17 05:17 WBC 6.9 RBC 4.26 L Hgb 13.1 L Hct 39.2 L MCV 92.0 MCH 30.8 MCHC 33.4 RDW 12.8 Plt Count 248 MPV 9.4 Neut % (Auto) 61.2 Lymph % (Auto) 23.6 Hill % (Auto) 10.1 Eos % (Auto) 3.9 Baso % (Auto) 1.2 Lymph # (Auto) 1.63 Hill # (Auto) 0.70 Eos # (Auto) 0.27 Baso # (Auto) 0.08 Absolute Neutrophils 4.24 Sodium 134 Potassium 4.2 Chloride 102 Carbon Dioxide 23 Anion Gap 9.0 BUN 16 Creatinine 1.0 GFR Calculation 74 Glucose 154 H Calcium 8.8 Magnesium 2.3 Total Bilirubin 0.3 AST 38 ALT 27 Alkaline Phosphatase 59 Total Protein 6.9 Albumin 3.0 L Globulin 3.9 H Albumin/Globulin Ratio 0.8 L Preliminary micro results at discharge 09/13/21 14:09 Blood Culture - Preliminary Blood 09/13/21 14:03 Blood Culture - Preliminary Blood Discharge Plan Patient/Caregiver Discharge Instructions Activity: increase activity as tolerated Diet: Consistent Carbohydrate Instructions: Wound Healing and Your Diet (DC), Chronic Wounds (DC) Activity Restrictions/Additional Instructions: Midline care until IV antibiotics finish and then DC Prescriptions: New ceftriaxone 2 gram recon soln 2 g IV Q24H Qty: 11 0RF Continued cyanocobalamin (vitamin B-12) 500 MCG tablet 500 mcg PO DAILY 0RF ascorbic acid (vitamin C) [Vitamin C] 500 MG tablet 1,000 mg PO DAILY 0RF cinnamon bark 500 MG capsule 500 mg PO DAILY 0RF Lantus Solostar U-100 Insulin 100 unit/mL (3 mL) insulin pen 10 unit SUBCUT DAILY 0RF Label Comments: INJECT 10 U SUBCUTANEOUSLY EVERY EVENING Other Ambulatory Orders: Wound Care Instructions (CONT) Location: None Selected Ordered By: Live Heard Follow Up Plan Follow up with: Benny John MD [Primary Care Provider] - Krystian Davila MD [Physician] - Live Heard DPM [Physician] - Patient Disposition: Home, Self-Care Rehab Potential: Fair Overall status at discharge: patient is progressing back to baseline Discharge Orders: Discharge Order (Routine); Ordered 09/18/21 [facility]/Pulmonary Embolism Present on Admission: No
--- NOTE | 2021-09-17 16:42 | Surgical Pathology Report ---
Histology Microscopic Diagnosis Specimen A- BONE, RIGHT PARTIAL FIFTH METATARSAL, RESECTION: --- SEVERE ACUTE OSTEOMYELITIS. (ACP:sln) Gross Description Received in formalin designated as right partial fifth metatarsal, is a segment of bone. It is 4 x 1.5 x 1.5 cm. The margin is inked black. Approximately 1.4 cm from the articulated surface is a 0.6 cm area of possible deterioration. A customer retention representative section is bisected and submitted in two cassettes following decalcification. (SCB:adj) Electronically Signed Girish Schofield MD, FCAP Electronically Signed 09/17/2021 16:40
[2021-09-17] MEDS: SENNOSIDES 1 TABLET PO SCH (20:53)
[2021-09-17] MEDS: ZOLPIDEM 5 MG TABLET PO PRN (21:43)
[2021-09-18] MEDS: 0.9 % SODIUM CHLORIDE 10 ML SYRINGE IV SCH ×3 (05:22→08:45)
[2021-09-18] MEDS: PIPERACILLIN SODIUM/TAZOBACTAM 3.375 GM in DEXTROSE 5% IN WATER 50 ML IV SCH (05:22)
[2021-09-18] MEDS: INSULIN LISPRO 1 UNIT/0.01 ML UNIT SQ SCH ×2 (07:23→11:59)
--- NOTE | 2021-09-18 08:39 | Internal Med Progress Note ---
SUBJECTIVE Subjective Patient information: Note initiated : 09/18/21 at 8:31 am Service Date, if different from initiated Date: [] Patient: Jayjay Mcdonald 76 y/o M admitted on 09/13/21 for Right Partial Fifth Metatarsal Amputaion. Chief Complaint: [] Interval history: History of present illness: Mr. Mcdonald is a 75 year old M history of type 2 diabetes, presenting with 3-day history of right foot wound. Patient stepped on a stone 5 weeks ago with his right foot with a resultant foot ulcer. He was treated with 3 weeks course of oral antibiotics. At the end of the therapy, he said that his wound healed up. About 3 days ago, after standing for 14 hours, he noticed the base of his right fifth toe ulcerated again with pustular discharge. He is also experiencing 6 out of 10, aching, continuous pain at the center site. Alleviating factors involving elevating the right leg. Exacerbating factors including standing on the right foot. There is also associated erythematic rash on the right lateral foot as well as under right eduardo. Patient is also complaining of associated fever and chills. He denies any change in appetite or GI upset such as nausea or vomiting. He denies any general body weakness. He went to Dr. Davila office earlier today and was being sent to our ED for further evaluations. Vital signs at ED presentations were all within normal limits. Labs significant for lack of leukocytosis with WBC 9.3. Serum lactic acid 0.9. Serum creatinine level 1.3 with baseline 1.0. Serum glucose level 183. Right foot x-ray showing probable wound with associated soft tissue swelling at the base of the right fifth digit. Osteomyelitis of the fifth metatarsal head is possible although not definite. 09/14: Afebrile overnight. Blood and wound cultures no growth to date. CT right foot signs of osteomyelitis. Dr. Heard to be performing surgery this morning. 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 Heard on 09/14. Fasting glucose 146 this morning. Blood and wound cultures no growth to date. Denies fever or chills or sweating. Denies pain of his right foot. Good energy. Good appetite. 09/16: Afebrile overnight. Intra-operative wound culture growing Beta strep. Fasting glucose 170 this morning. Denies any right foot pain. Denies fever or chills or sweating. Good energy. Good appetite. 09/17: Afebrile overnight. Intra-operative wound culture growing Beta strep. Fasting glucose 154 this morning. Denies any right foot pain. Denies fever or chills or sweating. Good energy. Good appetite. 09/18 No overnight event or new complaints. Wound culture growing Streptococcus can is. Patient does have dogs at home with sleep with him. Review of Systems: denies headache/fever/chills/nausea/vomiting/chest or abdominal pain/cough/dyspnea/diarrhea. Otherwise see above. Constitutional Vitals: Vital Signs Temp Pulse Resp BP Pulse Ox 97.1 F 62 16 137/89 93 09/18/21 02:48 09/18/21 02:48 09/18/21 02:48 09/18/21 02:48 09/18/21 02:48 Period Temp Pulse Resp BP Sys/Elizondo Pulse Ox Last 24 Hr 97.1 F-98.6 F 62-67 16-24 137-158/89-96 92-95 Intake and Output 09/17/21 09/18/21 09/18/21 21:59 05:59 13:59 Intake Total 1050 550 50 Output Total 900 1600 Balance 150 -1050 50 Weight 129.138 kg Intake & Output: Intake & Output 09/17/21 09/18/21 09/18/21 21:59 05:59 13:59 Intake Total 1050 550 50 Output Total 900 1600 Balance 150 -1050 50 Weight 129.138 kg Intake: IV 50 550 50 Zosyn 3.375 gm In Dextrose 5% 50 50 50 in Water 50 ml @ 100 mls/hr IV Q6H [facility] Rx#:[id number] Vancomycin 1,500 mg In Sodium 500 Chloride 0.9% 500 ml @ 333.3 mls/hr IV Q12H [facility] Rx#: [id number] Oral 1000 Output: Void Amount 900 1600 Other: Meal Dinner Percent of Meal Consumed 100% Urine Appearance Clear Clear Urine Color Bright Yellow Pale Urine Odor Normal Exam: General: Alert, Awake, No acute Distress Eyes/N/T: EOMI, Head/Neck: neck supple, CV: RRR, No murmurs, Pulm: Clear b/l, no wheezing/rhonchi/rales Abd: soft, nontender, +BS x4 Ext: no clubbing/cyanosis/edema, Right 5th toe surgically amputated Neuro: Alert, no focal deficits, moves all extremities, Skin: warm/dry OBJ DATA Labs CBC & Chem 7: 09/17/21 05:17 09/17/21 05:17 Labs: Abnormal Lab Results 09/17/21 09/17/21 09/16/21 05:17 05:17 05:25 RBC 4.26 L Hgb 13.1 L Hct 39.2 L Lymph # (Auto) Glucose 154 H 170 H Albumin 3.0 L 2.6 L Globulin 3.9 H 4.0 H Albumin/Globulin Ratio 0.8 L 0.6 L 09/16/21 05:25 RBC 4.12 L Hgb 12.3 L Hct 38.3 L Lymph # (Auto) 1.35 L Glucose Albumin Globulin Albumin/Globulin Ratio Meds: Medications Acetaminophen (Acetaminophen 325 Mg Tablet) 650 mg PO Q6HP PRN; Protocol PRN Reason: Per Pain Protocol/Fever > 101 Last Admin: 09/14/21 23:45 Dose: 650 mg Documented by: Albuterol/Ipratropium (Ipratropium/Albuterol 3 Ml Ampul.Neb) 3 ml NEB Q4HRT PRN PRN Reason: Wheezing Ascorbic Acid (Ascorbic Acid 500 Mg Tablet) 500 mg PO DAILY [facility] Last Admin: 09/17/21 07:46 Dose: 500 mg Documented by: Aspirin (Aspirin 325 Mg Enteric Coated Tablet) 325 mg PO DAILY [facility] Last Admin: 09/17/21 07:46 Dose: 325 mg Documented by: Citalopram Hydrobromide (Citalopram 20 Mg Tablet) 10 mg PO DAILY [facility] Last Admin: 09/17/21 07:52 Dose: 10 mg Documented by: Cyanocobalamin (Cyanocobalamin (Vitamin B-12) 500 Mcg Tablet) 500 mcg PO DAILY [facility] Last Admin: 09/17/21 07:46 Dose: 500 mcg Documented by: Dextrose (Dextrose 50% 50 Ml Vial) 0 ml IV UD PRN PRN Reason: Hypoglycemia Diagnostic Test (Pha) (Accu-Chek 1 Each Strip) 1 each FS ACHS [facility] Last Admin: 09/18/21 07:22 Dose: 1 each Documented by: Docusate Sodium (Docusate Sodium 100 Mg Capsule) 100 mg PO BID [facility] Last Admin: 09/17/21 20:38 Dose: Not Given Documented by: Enoxaparin Sodium (Enoxaparin 40 Mg/0.4 Ml Syringe) 40 mg SQ DAILY [facility] Last Admin: 09/17/21 07:46 Dose: 40 mg Documented by: Glucose (Dextrose 31 Gm Oral.Susp) 15 gm PO PRN PRN PRN Reason: Hypoglycemia Heparin Sodium (Porcine) (Heparin Flush 10 Units/Ml 5 Ml Syringe) 2 ml IV Q12 [facility] Last Admin: 09/17/21 20:42 Dose: 2 ml Documented by: Piperacillin Sod/Tazobactam (Sod 3.375 gm/ Dextrose) 50 mls @ 100 mls/hr IV Q6H [facility]; Protocol Last Infusion: 09/18/21 06:10 Dose: Infused Documented by: Vancomycin HCl 1,500 mg/ (Sodium Chloride) 500 mls @ 333.3 mls/hr IV Q12H [facility] Last Infusion: 09/18/21 02:57 Dose: Infused Documented by: Insulin Glargine (Insulin Glargine, Human 1 Unit/0.01 Ml) 10 unit SQ DAILY [facility] Last Admin: 09/17/21 07:46 Dose: 10 unit Documented by: Insulin Human Lispro (Insulin Lispro 1 Unit/0.01 Ml Unit) [facility]; Protocol Last Admin: 09/18/21 07:23 Dose: 1 units Documented by: Loperamide HCl (Loperamide 2 Mg Capsule) 2 mg PO PRN PRN PRN Reason: Diarrhea Last Admin: 09/15/21 17:47 Dose: 2 mg Documented by: Morphine Sulfate (Morphine 4 Mg/Ml Vial) 4 mg IV Q4HP PRN; Protocol PRN Reason: Per Pain Protocol Ondansetron HCl (Ondansetron 4 Mg/2 Ml Vial) 4 mg IV Q6HP PRN PRN Reason: Nausea And Vomiting Cinnamon Bark 500 Mg (Capsule) 1 dose PO DAILY [facility] Last Admin: 09/17/21 07:52 Dose: Not Given Documented by: Senna (Sennosides 1 Tablet) 2 tab PO HS [facility] Last Admin: 09/17/21 20:53 Dose: Not Given Documented by: Sodium Chloride (0.9 % Sodium Chloride 10 Ml Syringe) 10 ml IV Q8 [facility] Last Admin: 09/18/21 05:22 Dose: 10 ml Documented by: Sodium Chloride (0.9 % Sodium Chloride 10 Ml Syringe) 10 ml IV Q12 [facility] Last Admin: 09/17/21 20:53 Dose: 10 ml Documented by: Vancomycin HCl (Vancomycin Per Pharmacy) 1 order IV UD [facility]; Protocol Zolpidem Tartrate (Zolpidem 5 Mg Tablet) 5 mg PO HSP PRN PRN Reason: Insomnia Last Admin: 09/17/21 21:43 Dose: 5 mg Documented by: A/P Narrative A/P Narrative: Assessment and Plans: *Right diabetic foot/leg cellulitis & osteo 5th digit: 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 Davila & Dr. 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
[2021-09-18] MEDS: ENOXAPARIN 40 MG/0.4 ML SYRINGE SQ SCH (08:43)
[2021-09-18] MEDS: ASCORBIC ACID 500 MG TABLET PO SCH (08:44)
[2021-09-18] MEDS: CITALOPRAM 20 MG TABLET PO SCH (08:44)
[2021-09-18] MEDS: CYANOCOBALAMIN (VITAMIN B-12) 500 MCG TABLET PO SCH (08:44)
[2021-09-18] MEDS: ASPIRIN 325 MG ENTERIC COATED TABLET PO SCH (08:44)
[2021-09-18] MEDS: Cinnamon Bark 500 MG Capsule PO SCH (08:45)
[2021-09-18] MEDS: DOCUSATE SODIUM 100 MG CAPSULE PO SCH (08:45)
[2021-09-18] MEDS: VANCOMYCIN 1,500 MG in 0.9 % SODIUM CHLORIDE 500 ML IV SCH (08:52)
[2021-09-18] MEDS ORDERED: INSULIN GLARGINE, HUMAN 1 UNIT/0.01 ML SQ SCH (09:00)
[2021-09-18] MEDS ORDERED: cefTRIAXone 2 GM in DEXTROSE 5% IN WATER 50 ML IV ONE (10:16)
== END 2021-09-18 13:50 | disposition home or self-care (01) | DRG 629 ==
LOC: ED 13:22 → MEDSUR 20:28
PROVIDERS: ADMIT Internal Medicine; ATTEND Internal Medicine